=== PATIENT | female | born 1955 | race Hispanic/Latino ===

== ENCOUNTER 2016-09-29 12:13 | Inpatient (IN) | payer MEDICARE, MEDICAID ==
[2016-09-29] MEDS ORDERED: Acetaminophen 160 mg/5 ml UD PO ONE (13:24)
[2016-09-29 13:34] LABS: BASO # 0.1 K/uL (0.0-0.2); BASO % 0.5 % (0.0-2.0); EOS % 0.3 % (0.0-4.0); HEMATOCRIT 34.6 % (34.0-47.0); LYMPH # 2.1 K/uL (1.0-4.3); LYMPH % 12.4 % (20.0-40.0); MEAN CORPUSCULAR HEMOGLOBIN 21.1 pg (27.0-31.0); MONO # 0.9 K/uL (0.0-0.8); MONO % 5.5 % (0.0-10.0); RED CELL DISTRIBUTION WIDTH 17.1 % (11.5-14.5); WHITE BLOOD COUNT 16.8 K/uL (4.8-10.8)
[2016-09-29 13:35] LABS: MEAN CELL VOLUME 68.2 fL (81.0-99.0)
[2016-09-29 13:38] LABS: CHLORIDE 101 mmol/L (98-107)
[2016-09-29] MEDS ORDERED: Acetaminophen 160 mg/5 ml elixir (120 ml) ONE (13:38)
[2016-09-29 13:39] LABS: POTASSIUM 3.6 mmol/L (3.6-5.2); SODIUM 141 mmol/L (132-148)
[2016-09-29 13:41] LABS: ALKALINE PHOSPHATASE 145 U/L (38-126); AST/SGOT 90 U/L (14-36); BILIRUBIN,TOTAL 0.8 mg/dL (0.2-1.3); BLOOD UREA NITROGEN 17 mg/dL (7-17); CARBON DIOXIDE 27 mmol/L (22-30); GFR AFRICAN-AMERICAN > 60; TOTAL PROTEIN 7.4 g/dL (6.3-8.3)
[2016-09-29 13:42] LABS: ALT/SGPT 95 U/L (9-52); CALCIUM 9.4 mg/dl (8.6-10.4); GLUCOSE,RANDOM 146 mg/dL (65-105)
[2016-09-29] MEDS ORDERED: Sodium Chloride 0.9% 1,000 ML IV ONE (13:47)
--- NOTE | 2016-09-29 13:55 | C.PDOC ---
History Of Present Illness 61 yr old female with PMHx of Multiple Sclerosis and is bed bound, brought in by family, presents to the ER with injury to the right hand sustained last weeks during transfer. Family reports an XRay was done at home which shows a fracture and came in today for further evaluation. Family states the patient is on Prednisone for the past 2 days. ROS is limited due to clinical condition. Family denies fever. Time Seen by Provider: 09/29/16 13:05 Chief Complaint (Nursing): Upper Extremity Problem/Injury History Per: Family History/Exam Limitations: clinical condition Onset/Duration Of Symptoms: Days (1 week) Past Medical History Reviewed: Historical Data, Nursing Documentation, Vital Signs Vital Signs: Last Vital Signs Temp 98.2 F 10/01/16 07:35 Pulse 60 10/01/16 07:35 Resp 20 10/01/16 07:35 BP 136/78 10/01/16 07:35 Pulse Ox 96 10/01/16 13:30 - Medical History PMH: Multiple Sclerosis Family History: States: No Known Family Hx - Social History Hx Alcohol Use: No Hx Substance Use: No Review Of Systems Review Of Systems: ROS cannot be obtained secondary to pt's inabilty to answer questions. Constitutional: Negative for: Fever Musculoskeletal: Positive for: Other ((+) Right hand injury ) Physical Exam - Physical Exam Appears: Non-toxic, No Acute Distress Skin: Warm, Dry, No Rash Head: Atraumatic, Normacephalic Oral Mucosa: Moist Chest: Symmetrical, No Tenderness Cardiovascular: Rhythm Regular, No Murmur Respiratory: Normal Breath Sounds, No Rales, No Rhonchi, No Stridor, No Wheezing Gastrointestinal/Abdominal: Normal Exam, Soft, No Tenderness, No Guarding, No Rebound Extremity: Capillary Refill (<2), Other (Right Hand - Dorsam aspect, multiple white plauges 2-3 mm in size all over the hand. Hand is erythematous, swollen and warm to touch especially over the 1st, 2nd and 3rd metacarpals.) Neurological/Psych: Oriented x3, Other (Patient is alert and at baseline according to family. ) ED Course And Treatment - Laboratory Results Result Diagrams: 10/01/16 08:14 10/01/16 08:14 O2 Sat by Pulse Oximetry: 96 (RA ) Pulse Ox Interpretation: Normal - Other Rad X-Ray - Right Hand X-Ray: Viewed By Me, Read By Radiologist Interpretation: PROCEDURE: Right Hand Radiographs. HISTORY: trauma to 2nd finger, swelling and red. COMPARISON: None available. FINDINGS: BONES: Oblique displaced fracture of the distal 2nd metatarsal. The remainder of the visualized osseous structures appear intact. JOINTS: No dislocation. SOFT TISSUES: Soft tissue swelling. No evidence of radiopaque foreign body. OTHER FINDINGS: None. IMPRESSION: Oblique displaced fracture of the distal 2nd metatarsal. Soft tissue swelling. Medical Decision Making Medical Decision Making: PLAN: * X-Ray - Right hand * VBG * CBC * CMp * Urinalysis * Tylenol PO * Rocephin IVPB * Sodium Chloride IV [address] Sal, will admit pt for iv antibiotics for hand cellulitis. Discussed with medical surgical tech working with Dr Fiore. Disposition Discussed With .: Shreyas Shane Doctor Will See Patient In The: Hospital - Disposition Disposition: HOSPITALIZED Disposition Time: 15:28 Condition: STABLE - Clinical Impression Clinical Impression: Cellulitis of right hand, Fracture of metacarpal of right hand, closed - PA / ASTRONOMY INSTRUCTOR / Resident Statement MD/DO has reviewed & agrees with the documentation as recorded. - Scribe Statement The provider has reviewed the documentation as recorded by the Scribe Cortney Dupree All medical record entries made by the Scribe were at my direction and personally dictated by me. I have reviewed the chart and agree that the record accurately reflects my personal performance of the history, physical exam, medical decision making, and the department course for this patient. I have also personally directed, reviewed, and agree with the discharge instructions and disposition. Decision To Admit - Pt Status Changed To: Hospital Disposition Of: Observation - . Bed Request Type: Regular Admitting Physician: Shreyas Shane Patient Diagnosis: Cellulitis of right hand, Fracture of metacarpal of right hand, closed
[2016-09-29 13:56] LABS: VENOUS BLOOD GAS BASE EXCESS 5.1 mmol/L (0.0-2.0); VENOUS BLOOD GAS PCO2 47 mmHg (40-60); VENOUS BLOOD PH 7.42 (7.32-7.43)
[2016-09-29] MEDS ORDERED: cefTRIAXone IV 1 gm in Dextros 50 ML IVPB ONE (13:57)
[2016-09-29] MEDS ORDERED: Sodium Chloride 0.9% 1,000 ML ONE ×2 (13:57→18:02)
[2016-09-29 14:09] LABS: RBC URINE 12 /hpf (0-3); URINE BILIRUBIN 1+ (NEGATIVE); URINE COLOR Amber (YELLOW); URINE GLUCOSE (UA) NORMAL (Normal); URINE KETONE NEGATIVE (NEGATIVE); URINE LEUKOCYTE ESTERASE 2+ Leu/uL (Negative); URINE PROTEIN 3+ mg/dL (NEGATIVE); URINE UROBILINOGEN NORMAL mg/dL (0.2-1.0)
[2016-09-29 14:10] LABS: URINE BLOOD 1+ (NEGATIVE)
--- NOTE | 2016-09-29 15:51 | RAD ---
PROCEDURE: Right Hand Radiographs. HISTORY: trauma to 2nd finger, swelling and red COMPARISON: None available. FINDINGS: BONES: Oblique displaced fracture of the distal 2nd metatarsal. The remainder of the visualized osseous structures appear intact. JOINTS: No dislocation. SOFT TISSUES: Soft tissue swelling. No evidence of radiopaque foreign body. OTHER FINDINGS: None. IMPRESSION: Oblique displaced fracture of the distal 2nd metatarsal. Soft tissue swelling.
--- NOTE | 2016-09-29 15:55 | CP.PCM.HP ---
History of Present Illness - History of Present Illness History of Present Illness: Medicine Note for Dr. Ruffin CC: right hand pain HPI: 61 F with PMHx of MS, Overactive Bladder, and Depression presents to the ED with right hand pain. Patient is nonverbal, history retrieved from sister. Patient has home health aide assist her with her ADLs. During transfer last week , from toilet to wheelchair, the home health aid, grabbed the patient's right hand, grasping firmly the first 2 digits. Afterwards, the patient complained of right hand pain. The family assumed she sprained it and applied ice packs to the hand. They noticed the hand was becoming swollen, erythematous, and started to cause the patient pain. The family has a visiting CONVENTIONAL UNDERWRITER that comes 1-2/ month. The CONVENTIONAL UNDERWRITER ordered a hand xray - which showed fracture to the 2nd digit. Once aware of this, patient was brought to the ED. The patient has hx of overactive bladder , so has a suprapubic indwelling catheter inserted. This is changed out every 2 weeks. She has not been on steroids for several years now. She was given a small dose for the past 3 days by the visiting CONVENTIONAL UNDERWRITER. As per family, no fever or chills where noted. ROS unattainable from patient. PMHx: MS, Overactive Bladder, Depression PSHx: Left hip replacement 20 years ago Meds: As per APR. reviewed and confirmed by patient's medication list All: NKDA SHx: Denied x3 FHx: Unremarkable PMD: Reisner Present on Admission - Present on Admission Any Indicators Present on Admission: No Past Patient History - Past Social History Smoking Status: Former Smoker - NEUROLOGICAL Hx Multiple Sclerosis: Yes - PSYCHIATRIC Hx Substance Use: No - SURGICAL HISTORY Other/Comment: suprapubic catheter Meds Allergies/Adverse Reactions: Allergies Allergy/AdvReac Type Severity Reaction Status Date / Time No Known Allergies Allergy Unverified 09/29/16 12:49 Physical Exam - Constitutional Appears: No Acute Distress - Head Exam Head Exam: NORMAL INSPECTION, NORMOCEPHALIC - Eye Exam Eye Exam: EOMI, Normal appearance, PERRL. absent: Nystagmus, Scleral icterus - ENT Exam ENT Exam: Mucous Membranes Dry - Neck Exam Neck exam: Positive for: Normal Inspection - Respiratory Exam Respiratory Exam: Clear to Auscultation Bilateral, NORMAL BREATHING PATTERN. absent: Decreased Breath Sounds, Wheezes - Cardiovascular Exam Cardiovascular Exam: REGULAR RHYTHM, RRR, +S1, +S2 - GI/Abdominal Exam GI & Abdominal Exam: Normal Bowel Sounds, Soft. absent: Distended, Tenderness Additional comments: suprapubic catheter in place - Extremities Exam Extremities exam: Positive for: normal inspection, pedal pulses present. Negative for: pedal edema, tenderness Additional comments: Right Hand - Dorsam aspect, multiple white plauges 2-3 mm in size all over the hand. Hand is erythematous, swollen and warm to touch especially over the 1st, 2nd and 3rd metacarpals. - Neurological Exam Neurological exam: Alert, Oriented x3 - Psychiatric Exam Psychiatric exam: Normal Affect, Normal Mood - Skin Skin Exam: Dry, Intact, Normal Color, Warm Results - Vital Signs Recent Vital Signs: Last Vital Signs Temp 99.8 F H 09/29/16 12:56 Pulse 105 H 09/29/16 12:56 Resp 26 H 09/29/16 12:56 BP 113/74 09/29/16 12:56 Pulse Ox 96 09/29/16 15:29 - Labs Result Diagrams: 09/29/16 13:28 09/29/16 13:28 Labs: Laboratory Results - last 24 hr 09/29/16 09/29/16 09/29/16 13:28 13:28 13:50 WBC 16.8 H RBC 5.07 Hgb 10.7 L Hct 34.6 MCV 68.2 L MCH 21.1 L MCHC 31.0 L RDW 17.1 H Plt Count 288 MPV 10.0 Neut % (Auto) 81.3 H Lymph % (Auto) 12.4 L [place] % (Auto) 5.5 Eos % (Auto) 0.3 Baso % (Auto) 0.5 Neut # 13.7 H Lymph # 2.1 [place] # 0.9 H Eos # 0.0 Baso # 0.1 Differential Comment pO2 49 VBG pH 7.42 VBG pCO2 47 VBG HCO3 28.6 VBG Total CO2 31.9 H VBG O2 Sat (Calc) 86.5 H VBG Base Excess 5.1 H VBG Potassium 3.9 Glucose 153 H Lactate 1.3 Sodium 141 141.0 Potassium 3.6 Chloride 101 104.0 Carbon Dioxide 27 Anion Gap 16 BUN 17 Creatinine 0.5 L Est GFR ( Amer) > 60 Est GFR (Non-Af Amer) > 60 Random Glucose 146 H Calcium 9.4 Total Bilirubin 0.8 AST 90 H ALT 95 H Alkaline Phosphatase 145 H Total Protein 7.4 Albumin 3.7 Globulin 3.8 Albumin/Globulin Ratio 1.0 Venous Blood Potassium 3.9 Urine Color Urine Clarity Urine pH Ur Specific [place] Urine Protein Urine Glucose (UA) Urine Ketones Urine Blood Urine Nitrate Urine Bilirubin Urine Urobilinogen Ur Leukocyte Esterase Urine RBC (Auto) Amorphous Sediment 09/29/16 13:51 WBC RBC Hgb Hct MCV MCH MCHC RDW Plt Count MPV Neut % (Auto) Lymph % (Auto) [place] % (Auto) Eos % (Auto) Baso % (Auto) Neut # Lymph # [place] # Eos # Baso # Differential Comment pO2 VBG pH VBG pCO2 VBG HCO3 VBG Total CO2 VBG O2 Sat (Calc) VBG Base Excess VBG Potassium Glucose Lactate Sodium Potassium Chloride Carbon Dioxide Anion Gap BUN Creatinine Est GFR ( Amer) Est GFR (Non-Af Amer) Random Glucose Calcium Total Bilirubin AST ALT Alkaline Phosphatase Total Protein Albumin Globulin Albumin/Globulin Ratio Venous Blood Potassium Urine Color Alisson Urine Clarity Turbid Urine pH 8.0 Ur Specific [place] 1.032 H Urine Protein 3+ H Urine Glucose (UA) Normal Urine Ketones Negative Urine Blood 1+ H Urine Nitrate Negative Urine Bilirubin 1+ H Urine Urobilinogen Normal Ur Leukocyte Esterase 2+ H Urine RBC (Auto) 12 H Amorphous Sediment Many H Assessment & Plan - Assessment and Plan (Free Text) Plan: 2nd metacarpal of right hand fracture * Right Hand Xray- oblique displaced fracture of the distal 2nd metatarsal. Soft tissue swelling * Dr. Fiore consulted - help appreciated Right Hand Cellulitis * Started on: Vancomycin 1gram IVP daily * ID Consulted Dr. Wilman Arora - for approval for Teflaro * Motrin PRN, Toradol PRN for pain * F/U procal UTI * UA +3 LE * NS @ 125cc/hr * F/U Urine Culture Transaminitis * AST/ALT: 90/95 * Most likely 2/2 Imuran * Continue to monitor Hx of Multiple Sclerosis * Baclofen 20mg PO TID Hx of Overactive Bladder * Vesicare 5mg PO daily Hx of Neuropathy * Effexor xR 150mg PO daily Prophylactic Measures * GI PPX: Pepcid 20mg PO daily * DVT PPX: SCDs, lovenox 40 SC daily * Regular Diet DW Malika Oconnor DO, PGY-1
[2016-09-29] MEDS ORDERED: Sodium Chloride 0.9% 1,000 ML IV SCH ×2 (16:45→17:04)
--- NOTE | 2016-09-29 17:20 | CP.PCM.CON ---
History of Present Illness - History of Present Illness History of Present Illness: CONSULT NOTE FOR DR. ALARCON 61F presents to Ed with right hand swelling and pain that began on . Patient has a history of MS and has difficulty with talking, so family at bedside explain the course of events. On , while trying to get up from the bathroom with the help of home-maker, patient had a sudden sharp pain in her right hand while it was being pulled by homemaker who was helping her up. Family thought the pain was due to muscle strain in that area so it was not addressed. Gradually through the next following days, patients right hand began to swell and began having erythema. They reached out to primary THEATRICAL SCENIC DESIGNER who ordered an x-ray that showed swelling and fracture. PMH: Multiple sclerosis PSH: hip replacement Social: denies tobacco/alcohol/illicit drugs Allergies: NKDA Past Patient History - Past Social History Smoking Status: Former Smoker - NEUROLOGICAL Hx Multiple Sclerosis: Yes - PSYCHIATRIC Hx Substance Use: No - SURGICAL HISTORY Other/Comment: suprapubic catheter Meds Allergies/Adverse Reactions: Allergies Allergy/AdvReac Type Severity Reaction Status Date / Time No Known Allergies Allergy Unverified 09/29/16 12:49 - Medications Medications: Current Medications Azathioprine (Imuran) 50 mg PO TID [facility] Baclofen (Lioresal) 20 mg PO TID [facility] Enoxaparin Sodium (Lovenox) 40 mg SC DAILY [facility] Famotidine (Pepcid) 20 mg PO DAILY [facility] Home Med (Solifenacin Succinate [Vesicare]) 5 mg PO DAILY [facility] Sodium Chloride (Sodium Chloride 0.9%) 1,000 mls @ 125 mls/hr IV .Q8H [facility] Stop: 09/30/16 00:44 Ketorolac Tromethamine (Toradol) 30 mg IVP Q6 PRN PRN Reason: Pain, moderate (4-7) Morphine Sulfate (Morphine) 1 mg IVP Q4 PRN PRN Reason: Pain, severe (8-10) Ondansetron HCl (Zofran Inj) 4 mg IVP Q6H PRN PRN Reason: Nausea/Vomiting Saccharomyces Boulardii (Florastor) 250 mg PO DAILY [facility] Venlafaxine HCl (Effexor Xr) 150 mg PO DAILY [facility] Physical Exam - Constitutional Appears: No Acute Distress, Chronically Ill (history of MS) - Head Exam Head Exam: ATRAUMATIC - ENT Exam ENT Exam: Mucous Membranes Moist - Respiratory Exam Respiratory Exam: Clear to Auscultation Bilateral, NORMAL BREATHING PATTERN - Cardiovascular Exam Cardiovascular Exam: REGULAR RHYTHM, +S1, +S2 - GI/Abdominal Exam GI & Abdominal Exam: Soft. absent: Distended, Guarding, Rebound, Rigid, Tenderness - Extremities Exam Additional comments: right hand swelling and spasticity, with erythema on dorsal side noted. good capillary refill, palpable radial pulse Right Lower extremity spasticity - Neurological Exam Neurological exam: Alert - Skin Skin Exam: Dry, Intact, Normal Color, Warm Results - Vital Signs Recent Vital Signs: Last Vital Signs Temp 97.5 F L 09/29/16 16:29 Pulse 82 09/29/16 16:29 Resp 18 09/29/16 16:29 BP 121/74 09/29/16 16:29 Pulse Ox 96 09/29/16 16:29 - Labs Result Diagrams: 09/29/16 13:28 09/29/16 13:28 Assessment & Plan - Assessment and Plan (Free Text) Assessment: 61 with right hand pain and swelling 2/2 fracture of right 2nd metacarpal and cellulitis Plan: - NSAIDs/right arm elevation - Splint right hand lightly Discussed with Dr. Macarena Conroy, PGY2
[2016-09-29] MEDS ORDERED: Vancomycin 1 GM 1 GM/250 ML BAG IVPB ONE (18:02)
--- NOTE | 2016-09-29 22:33 | CP.PCM.CON ---
History of Present Illness - History of Present Illness History of Present Illness: INFECTIOUS DISEASE CONSULT; HX OBTAINED FROM CHART. PATIENT UNABLE TO GIVE DETAILS SECONDARY TO HER MS 61F presents to Ed with right hand swelling and pain that began on . Patient has a history of MS and has difficulty with talking, so family at bedside explain the course of events. On , while trying to get up from the bathroom with the help of home-maker, patient had a sudden sharp pain in her right hand while it was being pulled by homemaker who was helping her up. Family thought the pain was due to muscle strain in that area so it was not addressed. Gradually through the next following days, patients right hand began to swell and began having erythema. They reached out to primary BEAUTICIAN APPRENTICE who ordered an x-ray that showed swelling and fracture. PATIENT PRESENTLY SEEN BY HAND SURGEON DR ALARCON AND HAS A SPLINT RIGHT HAND. SHE WAS GIVEN A DOSE OF ROCEPHIN 1 G AND STARTED ON iv VANCOMYCIN 1 G EVERY 24 HOURLY PATIENT WAS NOTED TO HAVE CELLULITIS AND SWELLING OF THE RIGHT HAND WITH LEUKOCYTOSIS OF 16.8. INFECTIOUS DISEASE CONSULTATION REQUESTED FOR FURTHER EVALUATION OF iv ANTIBIOTICS. pATIENT ALSO NOTED TO HAVE ELEVATED TRANSAMINASES WITH ast OF 90, alt OF 95. X-RAY RIGHT HAND SHOWS A OBLIQUE DISPLACED FRACTURE OF DISTAL 2ND METATARSAL WITH SOFT TISSUE SWELLING. ALLERGIES; NKA. PMH: Multiple sclerosis PSH: hip replacement Social: denies tobacco/alcohol/illicit drugs Review of Systems - Review of Systems Systems not reviewed;Unavailable: Other (PATIENT HAS DIFFICULTY TALKING SECONDARY TO HER MS.) Past Patient History - Past Social History Smoking Status: Former Smoker - NEUROLOGICAL Hx Multiple Sclerosis: Yes - PSYCHIATRIC Hx Substance Use: No - SURGICAL HISTORY Other/Comment: suprapubic catheter Meds Allergies/Adverse Reactions: Allergies Allergy/AdvReac Type Severity Reaction Status Date / Time No Known Allergies Allergy Unverified 09/29/16 12:49 - Medications Medications: Current Medications Baclofen (Lioresal) 20 mg PO TID [facility] Last Admin: 09/29/16 19:35 Dose: 20 mg Enoxaparin Sodium (Lovenox) 40 mg SC DAILY [facility] Famotidine (Pepcid) 20 mg PO DAILY [facility] Sodium Chloride (Sodium Chloride 0.9%) 1,000 mls @ 125 mls/hr IV .Q8H [facility] Stop: 09/30/16 00:44 Vancomycin HCl 1 gm/ Sodium (Chloride) 250 mls @ 166.7 mls/hr IVPB Q24H [facility] Last Admin: 09/29/16 18:11 Dose: 166.7 mls/hr Ibuprofen (Motrin Tab) 600 mg PO TID PRN PRN Reason: Pain, Mild (1-3) Ketorolac Tromethamine (Toradol) 30 mg IVP Q6 [facility] Ondansetron HCl (Zofran Inj) 4 mg IVP Q6H PRN PRN Reason: Nausea/Vomiting Saccharomyces Boulardii (Florastor) 250 mg PO DAILY [facility] Tolterodine Tartrate (Detrol La) 2 mg PO DAILY [facility] Venlafaxine HCl (Effexor Xr) 150 mg PO DAILY [facility] Physical Exam - Constitutional Appears: No Acute Distress - Head Exam Head Exam: NORMAL INSPECTION - Eye Exam Eye Exam: EOMI, PERRL - ENT Exam ENT Exam: Normal Oropharynx - Neck Exam Neck exam: Positive for: Normal Inspection - Respiratory Exam Respiratory Exam: Clear to Auscultation Bilateral - Cardiovascular Exam Cardiovascular Exam: REGULAR RHYTHM, +S1, +S2 - GI/Abdominal Exam GI & Abdominal Exam: Normal Bowel Sounds, Soft. absent: Organomegaly - Extremities Exam Extremities exam: Positive for: pedal pulses present. Negative for: calf tenderness, pedal edema - Expanded Upper Extremities Exam Right Vascular exam: absent: vascular compromise (RIGHT HAND SOFT TISSUE SWELLING WITH TENDERNESS PALPATION DISTAL SECOND METATARSAL. pATIENT WITH A SPLINT PRESENTLY.) - Neurological Exam Neurological exam: Alert - Psychiatric Exam Psychiatric exam: Flat Affect - Skin Skin Exam: Normal Color, Warm Results - Vital Signs Recent Vital Signs: Last Vital Signs Temp 97.4 F L 09/29/16 21:30 Pulse 92 H 09/29/16 19:50 Resp 20 09/29/16 19:50 BP 119/77 09/29/16 19:50 Pulse Ox 96 09/29/16 19:50 - Labs Result Diagrams: 09/30/16 07:05 09/30/16 07:05 Labs: Laboratory Results - last 24 hr 09/29/16 17:24 Procalcitonin 0.13 L Assessment & Plan (1) Cellulitis of right hand Assessment and Plan: DC IV VANCOMYCIN. START IV ANCEF 1 G EVERY 8 HOURLY 09/29/16 PER RECOMMENDATIONS AND SURGERY PATIENT FOR OT /AND SPECIAL SPLINT. fOLLOW-UP CBC WITH DIFFERENTIAL IN A.M. ESR,CRP IN AM. f/u cultures to adjust abx. Status: Acute (2) Fracture of metacarpal of right hand, closed Status: Acute
[2016-09-30] MEDS: ceFAZolin IV 1 gm in Dextrose 1 GM/50 ML BAG IVPB SCH ×2 (04:35→11:49)
[2016-09-30 07:18] LABS: CHLORIDE 106 mmol/L (98-107)
[2016-09-30 07:19] LABS: POTASSIUM 3.7 mmol/L (3.6-5.2); SODIUM 141 mmol/L (132-148)
[2016-09-30 07:21] LABS: AST/SGOT 62 U/L (14-36); BILIRUBIN,DIRECT 0.4 mg/dL (0.0-0.4); BILIRUBIN,TOTAL 0.5 mg/dL (0.2-1.3); BLOOD UREA NITROGEN 16 mg/dL (7-17); CARBON DIOXIDE 27 mmol/L (22-30); GFR AFRICAN-AMERICAN > 60; TOTAL PROTEIN 6.3 g/dL (6.3-8.3)
[2016-09-30 07:22] LABS: ALKALINE PHOSPHATASE 115 U/L (38-126); ALT/SGPT 82 U/L (9-52); CALCIUM 8.5 mg/dl (8.6-10.4); GLUCOSE,RANDOM 88 mg/dL (65-105)
[2016-09-30 07:24] LABS: BASO % 0.2 % (0.0-2.0); EOS # 0.1 K/uL (0.0-0.7); EOS % 0.5 % (0.0-4.0); HEMATOCRIT 30.1 % (34.0-47.0); LYMPH # 3.2 K/uL (1.0-4.3); LYMPH % 29.9 % (20.0-40.0); MEAN CELL VOLUME 67.8 fL (81.0-99.0); MEAN CORPUSCULAR HEMOGLOBIN 21.5 pg (27.0-31.0); MEAN CORPUSCULAR HGB CONC 31.8 g/dL (33.0-37.0); MEAN PLATELET VOLUME 9.8 fL (7.2-11.7); MONO # 0.7 K/uL (0.0-0.8); MONO % 6.8 % (0.0-10.0); RED CELL DISTRIBUTION WIDTH 17.2 % (11.5-14.5); WHITE BLOOD COUNT 10.7 K/uL (4.8-10.8)
[2016-09-30 07:31] LABS: CHLORIDE 106 mmol/L (98-107); POTASSIUM 3.7 mmol/L (3.6-5.2)
[2016-09-30 07:33] LABS: BILIRUBIN,TOTAL 0.5 mg/dL (0.2-1.3); GFR AFRICAN-AMERICAN > 60
[2016-09-30 07:34] LABS: ALB/GLOB RATIO 0.9 (1.0-2.1); ALKALINE PHOSPHATASE 119 U/L (38-126); ALT/SGPT 82 U/L (9-52); AST/SGOT 66 U/L (14-36); BLOOD UREA NITROGEN 18 mg/dL (7-17); CALCIUM 8.8 mg/dl (8.6-10.4); CARBON DIOXIDE 26 mmol/L (22-30); GLUCOSE,RANDOM 92 mg/dL (65-105); PHOSPHOROUS 3.4 mg/dL (2.5-4.5); TOTAL PROTEIN 6.4 g/dL (6.3-8.3)
[2016-09-30 07:35] LABS: MAGNESIUM 2.1 mg/dL (1.6-2.3)
[2016-09-30 07:36] LABS: SODIUM 141 mmol/L (132-148)
[2016-09-30] MEDS: Enoxaparin 40 mg Syringe SC SCH ×2 (09:32→09:44)
[2016-09-30] MEDS: Venlafaxine 150 mg ER Cap PO SCH (09:33)
[2016-09-30] MEDS: Saccharomyces Boulardi 250 mg Cap PO SCH (09:34)
[2016-09-30] MEDS: Tolterodine 2 mg ER Cap PO SCH (09:34)
[2016-09-30] MEDS ORDERED: Pantoprazole 40 mg EC Tab PO SCH (10:00)
[2016-09-30] MEDS ORDERED: Home Med 1 UNIT (Solifenacin Succinate [Vesicare] 5 MG) PO SCH (10:00)
--- NOTE | 2016-09-30 11:00 | CP.PCM.PN ---
Subjective - Date & Time of Evaluation Date of Evaluation: 09/30/16 Time of Evaluation: 07:00 - Subjective Subjective: HAND SURGERY PROGRESS NOTE FOR DR. ALARCON Patient seen and examined at bedside. She denies pain, numbness, or tingling in the right hand. She is tolerating her diet. Spoke with OT therapist who evaluated patient today for new splint. Objective - Vital Signs/Intake and Output Vital Signs (last 24 hours): Temp Pulse Resp BP Pulse Ox 98.4 F 74 20 115/74 96 09/30/16 08:18 09/30/16 08:18 09/30/16 08:18 09/30/16 08:18 09/30/16 08:18 Intake and Output: 09/30/16 09/30/16 06:59 18:59 Intake Total 580 Output Total 800 Balance -220 - Medications Medications: Current Medications Baclofen (Lioresal) 20 mg PO TID [facility] Last Admin: 09/30/16 09:33 Dose: 20 mg Enoxaparin Sodium (Lovenox) 40 mg SC DAILY [facility] Last Admin: 09/30/16 09:44 Dose: Not Given Famotidine (Pepcid) 20 mg PO DAILY [facility] Last Admin: 09/30/16 09:32 Dose: 20 mg Cefazolin Sodium/Dextrose (Ancef Iv 1 Gm Duplex) 1 gm in 50 mls @ 100 mls/hr IVPB Q8H [facility] Last Admin: 09/30/16 04:35 Dose: 100 mls/hr Ibuprofen (Motrin Tab) 600 mg PO TID PRN PRN Reason: Pain, Mild (1-3) Ketorolac Tromethamine (Toradol) 30 mg IVP Q6 [facility] Last Admin: 09/30/16 05:28 Dose: 30 mg Ondansetron HCl (Zofran Inj) 4 mg IVP Q6H PRN PRN Reason: Nausea/Vomiting Saccharomyces Boulardii (Florastor) 250 mg PO DAILY [facility] Last Admin: 09/30/16 09:34 Dose: 250 mg Tolterodine Tartrate (Detrol La) 2 mg PO DAILY [facility] Last Admin: 09/30/16 09:34 Dose: 2 mg Venlafaxine HCl (Effexor Xr) 150 mg PO DAILY [facility] Last Admin: 09/30/16 09:33 Dose: 150 mg - Labs Labs: 09/30/16 07:05 09/30/16 07:05 - Constitutional Appears: Non-toxic, No Acute Distress - Respiratory Exam Respiratory Exam: NORMAL BREATHING PATTERN. absent: Respiratory Distress - Cardiovascular Exam Cardiovascular Exam: +S1, +S2 - Extremities Exam Extremities Exam: Normal Capillary Refill Additional comments: Right hand and wrist in splint. Dressing clean/dry/intact. Cap refill <2secs. Non tender - Neurological Exam Neurological Exam: Alert, Awake Assessment and Plan - Assessment and Plan (Free Text) Assessment: 61yo F with right hand pain and swelling secondary to minimally displaced fracture of right 2nd metacarpal - No surgery needed due to minimal displacement. - OT evaluated patient and placed new splint but patient will need to go to outpatient OT facility for fully custom made removable splint - Will need referral for custom splint made as an outpatient ([facility]). - She should have custom radial gutter splint that supports the index finger MCP joint and leaves the DIP and PIP joints free. It can include the long finger but leave the ring and small finger free if possible. - Elevate hand on 2 pillows above the level of the heart - NSAIDs to decrease inflammation - Discussed plan with Dr. Macarena Varghese PGY-3
[2016-09-30] MEDS: Ceftaroline 600 MG in Sodium Chloride 0.9% 100 ML IVPB SCH (14:28)
--- NOTE | 2016-09-30 17:08 | CP.PCM.PN ---
Subjective - Date & Time of Evaluation Date of Evaluation: 09/30/16 Time of Evaluation: 17:08 - Subjective Subjective: PGY1 Note for Dr. Ruffin HPI: Patient seen and examined at bedside. Doing well with no complaints at this time. Able to communicate but sister is present to assist. Denies pain. Sister wants dressing changed on Suprapubic cath every day. Surgery is seeing patient for care of the splint. ID is taking care of the cellulitis. Objective - Vital Signs/Intake and Output Vital Signs (last 24 hours): Temp Pulse Resp BP Pulse Ox 98.4 F 74 20 115/74 96 09/30/16 08:18 09/30/16 08:18 09/30/16 08:18 09/30/16 08:18 09/30/16 08:18 Intake and Output: 09/30/16 09/30/16 06:59 18:59 Intake Total 580 400 Output Total 800 300 Balance -220 100 - Medications Medications: Current Medications Baclofen (Lioresal) 20 mg PO TID [facility] Last Admin: 09/30/16 14:29 Dose: 20 mg Enoxaparin Sodium (Lovenox) 40 mg SC DAILY [facility] Last Admin: 09/30/16 09:44 Dose: Not Given Famotidine (Pepcid) 20 mg PO DAILY [facility] Last Admin: 09/30/16 09:32 Dose: 20 mg Ceftaroline Fosamil 600 mg/ (Sodium Chloride) 100 mls @ 100 mls/hr IVPB Q12H [facility] Last Admin: 09/30/16 14:28 Dose: 100 mls/hr Ibuprofen (Motrin Tab) 600 mg PO TID PRN PRN Reason: Pain, Mild (1-3) Ketorolac Tromethamine (Toradol) 30 mg IVP Q6 [facility] Last Admin: 09/30/16 11:49 Dose: 30 mg Neomycin/Polymyxin/Bacitracin (Neosporin Triple Antibiotic Oint) 0 gm TOP DAILY [facility] Stop: 10/03/16 13:45 Ondansetron HCl (Zofran Inj) 4 mg IVP Q6H PRN PRN Reason: Nausea/Vomiting Pneumococcal Polyvalent Vaccine (Pneumovax 23 Vaccine) 0.5 ml IM .ONCE ONE Stop: 10/03/16 10:01 Saccharomyces Boulardii (Florastor) 250 mg PO DAILY [facility] Last Admin: 09/30/16 09:34 Dose: 250 mg Tolterodine Tartrate (Detrol La) 2 mg PO DAILY [facility] Last Admin: 09/30/16 09:34 Dose: 2 mg Venlafaxine HCl (Effexor Xr) 150 mg PO DAILY [facility] Last Admin: 09/30/16 09:33 Dose: 150 mg - Labs Labs: 09/30/16 07:05 09/30/16 07:05 - Constitutional Appears: Well, Non-toxic, No Acute Distress - Head Exam Head Exam: ATRAUMATIC, NORMAL INSPECTION, NORMOCEPHALIC - Eye Exam Eye Exam: EOMI - ENT Exam ENT Exam: Mucous Membranes Moist - Respiratory Exam Respiratory Exam: Clear to Ausculation Bilateral, NORMAL BREATHING PATTERN - Cardiovascular Exam Cardiovascular Exam: REGULAR RHYTHM. absent: RRR - GI/Abdominal Exam GI & Abdominal Exam: Soft, Normal Bowel Sounds. absent: Distended, Tenderness - Extremities Exam Additional comments: Warm R. arm with temporary splint in place. Arm elevated on 2 pillows - Neurological Exam Neurological Exam: Alert, Awake - Psychiatric Exam Psychiatric exam: Normal Affect, Normal Mood - Skin Skin Exam: Dry, Intact, Normal Color, Warm Assessment and Plan - Assessment and Plan (Free Text) Assessment: 2nd metacarpal of right hand fracture * Right Hand Xray- oblique displaced fracture of the distal 2nd metacarpal. Soft tissue swelling * Dr. Fiore consulted - temporary splint in place. F/U outpatient OT for custom splint * NSAIDs for pain Right Hand Cellulitis * ID Consulted Dr. Wilman Arora - for approval for Teflaro * Ancef 1g Q8 * Motrin PRN, Toradol PRN for pain * Procal = 0.13 UTI * UA +3 LE * NS @ 125cc/hr * F/U Urine Culture Transaminitis * AST/ALT: 62/82 * Most likely 2/2 Imuran * Continue to monitor Hx of Multiple Sclerosis * Baclofen 20mg PO TID Hx of Overactive Bladder * Vesicare 5mg PO daily Hx of Neuropathy * Effexor xR 150mg PO daily Prophylactic Measures * GI PPX: Pepcid 20mg PO daily * DVT PPX: SCDs, lovenox 40 SC daily * Regular Diet
--- NOTE | 2016-09-30 19:31 | CP.PCM.PN ---
Subjective - Date & Time of Evaluation Date of Evaluation: 09/30/16 Time of Evaluation: 19:31 - Subjective Subjective: CHIEF COMPLAINTS TODAY : afebrile c/o pain rt hand rt hand swollen and cellulitic ROS HEENT : N. Resp : No SOB wheezing, cough Cardio : No CP, PND orthopnea GI : No abd. 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 Musculoskel : N Ext. : Pedal pulses intact, no edema or calf pain.right hand swollen and cellulitic on the dorsum. Painful on movement. Derm : N Psych : N. PE. Pt. is alert awake in no distress./DYSARTHRIC SPEECH. V.S As noted in the chart Head ,ear nose,throat and eyes : Normal. Neck : Supple with normal carotids. Lungs: Clear air entry. Heart : S1 & S2 normal . . No murmur. S4 + Abd : Soft non tender with normal bowel sounds. +VE SUPRAPUBIC CATHETER IN PLACE. Neuro : Moves all ext. with no localized deficit.RIGHT HAND SWOLLEN AND CELLULITIC./PULSES INTACT. Ext : No edema with intact pulses. Neg. calf tenderness Derm : No rashes or decubitus ulcer. Radiology/Labs . urine culture +ve gram negative rods/gram-positive cocci. BLOOD CULTURE 1:2 SETS +VE STAPH AUREUS BY pna FISH. Asssessment : STAPH AUREUS BACTEREMIA.-SOURCE CA VS SUPRAPUBIC EXIT SITE INFECTION. RIGHT HAND CELLULITIS FRACTURE PHALANX SECOND METATARSAL RIGHT HAND UTI/SUPRAPUBIC CATHETER HISTORY OF MULTIPLE SCLEROSIS/AND INCREASED SPASTICITY. Plan : dc iv aNCEF cONTINUE iv VANCOMYCIN 1 G ONCE A DAY DAILY.09/28 sTART iv tEFLARO 600 MG EVERY 12 HOURLY FOR GRAM-NEGATIVE AND GRAM-POSITIVE COVERAGE.09/29 wOUND CULTURES SUPRAPUBIC CATHETER EXIT SITE. fOLLOW-UP CULTURES TO ADJUST ANTIBIOTICS. LWC PER HAND SURGEON dR. ALARCON. cASE DISCUSSED WITH THE SISTER JUAN C Vidal. Objective - Vital Signs/Intake and Output Vital Signs (last 24 hours): Temp Pulse Resp BP Pulse Ox 98.1 F 68 20 128/66 95 09/30/16 16:00 09/30/16 16:00 09/30/16 16:00 09/30/16 16:00 09/30/16 16:00 Intake and Output: 09/30/16 10/01/16 18:59 06:59 Intake Total 400 Output Total 300 Balance 100 - Medications Medications: Current Medications Baclofen (Lioresal) 20 mg PO TID [facility] Last Admin: 09/30/16 17:40 Dose: 20 mg Enoxaparin Sodium (Lovenox) 40 mg SC DAILY [facility] Last Admin: 09/30/16 09:44 Dose: Not Given Famotidine (Pepcid) 20 mg PO DAILY [facility] Last Admin: 09/30/16 09:32 Dose: 20 mg Ceftaroline Fosamil 600 mg/ (Sodium Chloride) 100 mls @ 100 mls/hr IVPB Q12H [facility] Last Admin: 09/30/16 14:28 Dose: 100 mls/hr Ibuprofen (Motrin Tab) 600 mg PO TID PRN PRN Reason: Pain, Mild (1-3) Ketorolac Tromethamine (Toradol) 30 mg IVP Q6 [facility] Last Admin: 09/30/16 11:49 Dose: 30 mg Neomycin/Polymyxin/Bacitracin (Neosporin Triple Antibiotic Oint) 0 gm TOP DAILY [facility] Stop: 10/03/16 13:45 Ondansetron HCl (Zofran Inj) 4 mg IVP Q6H PRN PRN Reason: Nausea/Vomiting Pneumococcal Polyvalent Vaccine (Pneumovax 23 Vaccine) 0.5 ml IM .ONCE ONE Stop: 10/03/16 10:01 Saccharomyces Boulardii (Florastor) 250 mg PO DAILY [facility] Last Admin: 09/30/16 09:34 Dose: 250 mg Tolterodine Tartrate (Detrol La) 2 mg PO DAILY [facility] Last Admin: 09/30/16 09:34 Dose: 2 mg Venlafaxine HCl (Effexor Xr) 150 mg PO DAILY [facility] Last Admin: 09/30/16 09:33 Dose: 150 mg - Labs Labs: 09/30/16 07:05 09/30/16 07:05 Assessment and Plan (1) Cellulitis of right hand Status: Acute (2) Fracture of metacarpal of right hand, closed Status: Acute
[2016-10-01] MEDS: Ceftaroline 600 MG in Sodium Chloride 0.9% 100 ML IVPB SCH ×2 (02:45→14:59)
[2016-10-01 08:30] LABS: BASO # 0.1 K/uL (0.0-0.2); BASO % 0.6 % (0.0-2.0); EOS # 0.1 K/uL (0.0-0.7); EOS % 1.2 % (0.0-4.0); HEMATOCRIT 30.7 % (34.0-47.0); LYMPH # 2.4 K/uL (1.0-4.3); MEAN CORPUSCULAR HEMOGLOBIN 21.5 pg (27.0-31.0); MEAN CORPUSCULAR HGB CONC 31.6 g/dL (33.0-37.0); MEAN PLATELET VOLUME 9.7 fL (7.2-11.7); MONO # 0.6 K/uL (0.0-0.8); MONO % 6.7 % (0.0-10.0); RED CELL DISTRIBUTION WIDTH 17.1 % (11.5-14.5); WHITE BLOOD COUNT 9.3 K/uL (4.8-10.8)
[2016-10-01 08:36] LABS: CHLORIDE 104 mmol/L (98-107)
[2016-10-01 08:37] LABS: POTASSIUM 3.9 mmol/L (3.6-5.2); SODIUM 142 mmol/L (132-148)
[2016-10-01 08:39] LABS: ALB/GLOB RATIO 0.9 (1.0-2.1); ALKALINE PHOSPHATASE 119 U/L (38-126); ALT/SGPT 76 U/L (9-52); AST/SGOT 43 U/L (14-36); BILIRUBIN,TOTAL 0.5 mg/dL (0.2-1.3); BLOOD UREA NITROGEN 22 mg/dL (7-17); CARBON DIOXIDE 28 mmol/L (22-30); GFR AFRICAN-AMERICAN > 60; TOTAL PROTEIN 6.3 g/dL (6.3-8.3)
[2016-10-01 08:40] LABS: CALCIUM 8.6 mg/dl (8.6-10.4); GLUCOSE,RANDOM 95 mg/dL (65-105); PHOSPHOROUS 3.9 mg/dL (2.5-4.5)
[2016-10-01] MEDS: Venlafaxine 150 mg ER Cap PO SCH (09:46)
[2016-10-01] MEDS: Tolterodine 2 mg ER Cap PO SCH (09:47)
[2016-10-01] MEDS: Enoxaparin 40 mg Syringe SC SCH (09:47)
[2016-10-01] MEDS: Saccharomyces Boulardi 250 mg Cap PO SCH (09:47)
[2016-10-01] MEDS: Bacitracin/Neomycin/Polymyxin Oint(30GM) TOP SCH (09:48)
--- NOTE | 2016-10-01 15:50 | CP.PCM.PN ---
Subjective - Date & Time of Evaluation Date of Evaluation: 10/01/16 Time of Evaluation: 10:00 - Subjective Subjective: HAND SURGERY PROGRESS NOTE FOR DR. ALARCON Patient seen and examined at bedside. She denies pain, numbness, or tingling in the right hand. She is tolerating her diet. OT placed resting hand splint yesterday. Overnight, the patient's hand slid down in the splint and she had increased swelling in the hand so the splint was removed. The swelling then decreased some to the same amount that she had upon admission. Currently her hand is resting on 2 pillows with ice. Patient also is being followed by ID for staph aureus bacteremia and UTI. Objective - Vital Signs/Intake and Output Vital Signs (last 24 hours): Temp Pulse Resp BP Pulse Ox 98.2 F 60 20 136/78 96 10/01/16 07:35 10/01/16 07:35 10/01/16 07:35 10/01/16 07:35 10/01/16 13:30 - Medications Medications: Current Medications Baclofen (Lioresal) 20 mg PO TID [facility] Last Admin: 10/01/16 13:53 Dose: 20 mg Enoxaparin Sodium (Lovenox) 40 mg SC DAILY [facility] Last Admin: 10/01/16 09:47 Dose: 40 mg Famotidine (Pepcid) 20 mg PO DAILY [facility] Last Admin: 10/01/16 09:47 Dose: 20 mg Ceftaroline Fosamil 600 mg/ (Sodium Chloride) 100 mls @ 100 mls/hr IVPB Q12H [facility] Last Admin: 10/01/16 14:59 Dose: 100 mls/hr Vancomycin HCl 1 gm/ Sodium (Chloride) 250 mls @ 166.7 mls/hr IVPB Q24H [facility] Last Admin: 09/30/16 22:32 Dose: 166.7 mls/hr Ibuprofen (Motrin Tab) 600 mg PO TID PRN PRN Reason: Pain, Mild (1-3) Ketorolac Tromethamine (Toradol) 30 mg IVP Q6 [facility] Last Admin: 10/01/16 12:31 Dose: Not Given Neomycin/Polymyxin/Bacitracin (Neosporin Triple Antibiotic Oint) 0 gm TOP DAILY [facility] Stop: 10/03/16 13:45 Last Admin: 10/01/16 09:48 Dose: 1 applic Ondansetron HCl (Zofran Inj) 4 mg IVP Q6H PRN PRN Reason: Nausea/Vomiting Pneumococcal Polyvalent Vaccine (Pneumovax 23 Vaccine) 0.5 ml IM .ONCE ONE Stop: 10/03/16 10:01 Saccharomyces Boulardii (Florastor) 250 mg PO DAILY [facility] Last Admin: 10/01/16 09:47 Dose: 250 mg Tolterodine Tartrate (Detrol La) 2 mg PO DAILY [facility] Last Admin: 10/01/16 09:47 Dose: 2 mg Venlafaxine HCl (Effexor Xr) 150 mg PO DAILY [facility] Last Admin: 10/01/16 09:46 Dose: 150 mg - Constitutional Appears: Non-toxic, No Acute Distress - Respiratory Exam Respiratory Exam: NORMAL BREATHING PATTERN. absent: Respiratory Distress - Cardiovascular Exam Cardiovascular Exam: +S1, +S2 - Extremities Exam Additional comments: Right hand with dorsal swelling and erythema. No tenderness. Cap refill <2 secs No pain with flexion/extension of fingers - Neurological Exam Neurological Exam: Alert, Awake Assessment and Plan - Assessment and Plan (Free Text) Assessment: 61yo F with right hand pain and swelling secondary to minimally displaced fracture of right 2nd metacarpal - No surgery needed due to minimal displacement. - OT resting hand splint was removed due to pt's hand slipping down and increased swelling - New orthoglass volar splint placed at bedside today - Upon discharge, needs referral for custom splint made as an outpatient ( Camelia or santiago and danae therapy). - She should have custom radial gutter splint that supports the index finger MCP joint and leaves the DIP and PIP joints free. It can include the long finger but leave the ring and small finger free if possible. - Elevate hand on 2 pillows above the level of the heart - Ice and NSAIDs to decrease inflammation - Discussed plan with Dr. Macarena Varghese PGY-3
--- NOTE | 2016-10-01 20:19 | CP.PCM.PN ---
Subjective - Date & Time of Evaluation Date of Evaluation: 10/01/16 Time of Evaluation: 20:15 - Subjective Subjective: PGY1 Note for Dr. Ruffin HPI: Patient seen and examined at bedside. Doing well. Able to communicate but slow to respond given her MS. Not complaining of any pain. Looks comfortable in bed. Denies N/V/CP/SOB/F Objective - Vital Signs/Intake and Output Vital Signs (last 24 hours): Temp Pulse Resp BP Pulse Ox 99.0 F 86 20 125/84 95 10/01/16 15:00 10/01/16 15:00 10/01/16 15:00 10/01/16 15:00 10/01/16 15:00 Intake and Output: 10/01/16 10/02/16 18:59 06:59 Intake Total 600 Output Total 800 Balance -200 - Medications Medications: Current Medications Baclofen (Lioresal) 20 mg PO TID [facility] Last Admin: 10/01/16 17:57 Dose: 20 mg Enoxaparin Sodium (Lovenox) 40 mg SC DAILY [facility] Last Admin: 10/01/16 09:47 Dose: 40 mg Famotidine (Pepcid) 20 mg PO DAILY [facility] Last Admin: 10/01/16 09:47 Dose: 20 mg Ceftaroline Fosamil 600 mg/ (Sodium Chloride) 100 mls @ 100 mls/hr IVPB Q12H [facility] Last Admin: 10/01/16 14:59 Dose: 100 mls/hr Vancomycin HCl 1 gm/ Sodium (Chloride) 250 mls @ 166.7 mls/hr IVPB Q24H [facility] Last Admin: 09/30/16 22:32 Dose: 166.7 mls/hr Ibuprofen (Motrin Tab) 600 mg PO TID PRN PRN Reason: Pain, Mild (1-3) Ketorolac Tromethamine (Toradol) 30 mg IVP Q6 [facility] Last Admin: 10/01/16 18:29 Dose: 30 mg Neomycin/Polymyxin/Bacitracin (Neosporin Triple Antibiotic Oint) 0 gm TOP DAILY [facility] Stop: 10/03/16 13:45 Last Admin: 10/01/16 09:48 Dose: 1 applic Ondansetron HCl (Zofran Inj) 4 mg IVP Q6H PRN PRN Reason: Nausea/Vomiting Pneumococcal Polyvalent Vaccine (Pneumovax 23 Vaccine) 0.5 ml IM .ONCE ONE Stop: 10/03/16 10:01 Saccharomyces Boulardii (Florastor) 250 mg PO DAILY [facility] Last Admin: 10/01/16 09:47 Dose: 250 mg Tolterodine Tartrate (Detrol La) 2 mg PO DAILY [facility] Last Admin: 10/01/16 09:47 Dose: 2 mg Venlafaxine HCl (Effexor Xr) 150 mg PO DAILY [facility] Last Admin: 10/01/16 09:46 Dose: 150 mg - Constitutional Appears: Well, Non-toxic - Head Exam Head Exam: ATRAUMATIC, NORMAL INSPECTION, NORMOCEPHALIC - Eye Exam Pupil Exam: Mydriatic - ENT Exam ENT Exam: Mucous Membranes Moist - Respiratory Exam Respiratory Exam: Clear to Ausculation Bilateral - Cardiovascular Exam Cardiovascular Exam: REGULAR RHYTHM - GI/Abdominal Exam GI & Abdominal Exam: Soft, Normal Bowel Sounds. absent: Distended, Tenderness - Exam Additional comments: Suprapubic catheter - Neurological Exam Neurological Exam: Alert, Awake - Skin Skin Exam: Dry, Intact, Normal Color, Warm Assessment and Plan - Assessment and Plan (Free Text) Assessment: 2nd metacarpal of right hand fracture * Right Hand Xray- oblique displaced fracture of the distal 2nd metacarpal. Soft tissue swelling * Dr. Fiore consulted - temporary splint in place. F/U outpatient OT for custom splint * NSAIDs for pain Right Hand Cellulitis * ID Consulted Dr. Wilman Arora * Teflaro 600mg Q12 * Vanc 1g Q12 * Motrin PRN, Toradol PRN for pain * Procal = 0.13 * Blood culture = S. aureus UTI * UA +3 LE * NS @ 125cc/hr * Urine Culture = S. aureus/Proteus Transaminitis * AST/ALT: 62/82 * Most likely 2/2 Imuran * Continue to monitor Hx of Multiple Sclerosis * Baclofen 20mg PO TID Hx of Overactive Bladder * Vesicare 5mg PO daily Hx of Neuropathy * Effexor xR 150mg PO daily Prophylactic Measures * GI PPX: Pepcid 20mg PO daily * DVT PPX: SCDs, lovenox 40 SC daily * Regular Diet
--- NOTE | 2016-10-01 22:24 | CP.PCM.PN ---
Subjective - Date & Time of Evaluation Date of Evaluation: 10/01/16 Time of Evaluation: 22:23 - Subjective Subjective: CHIEF COMPLAINTS TODAY : afebrile c/o pain rt hand rt hand swollen and cellulitic ROS HEENT : N. Resp : No SOB wheezing, cough Cardio : No CP, PND orthopnea GI : No abd. 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 Musculoskel : N Ext. : Pedal pulses intact, no edema or calf pain.right hand swollen and cellulitic on the dorsum. Painful on movement. Derm : N Psych : N. PE. Pt. is alert awake in no distress./DYSARTHRIC SPEECH. V.S As noted in the chart Head ,ear nose,throat and eyes : Normal. Neck : Supple with normal carotids. Lungs: Clear air entry. Heart : S1 & S2 normal . . No murmur. S4 + Abd : Soft non tender with normal bowel sounds. +VE SUPRAPUBIC CATHETER IN PLACE. Neuro : Moves all ext. with no localized deficit.RIGHT HAND SWOLLEN AND CELLULITIC./PULSES INTACT. Ext : No edema with intact pulses. Neg. calf tenderness Derm : No rashes or decubitus ulcer. Radiology/Labs . urine culture +ve MSSA/ PROTEUS MIRABILIS BLOOD CULTURE 1:2 SETS +VE STAPH AUREUS BY pna FISH. Asssessment : STAPH AUREUS BACTEREMIA.-SOURCE CA VS SUPRAPUBIC EXIT SITE INFECTION. RIGHT HAND CELLULITIS FRACTURE PHALANX SECOND METATARSAL RIGHT HAND UTI/SUPRAPUBIC CATHETER HISTORY OF MULTIPLE SCLEROSIS/AND INCREASED SPASTICITY. Plan : cONTINUE iv VANCOMYCIN 1 G ONCE A DAY DAILY.09/28 ON iv TEFLARO 600 MG EVERY 12 HOURLY FOR GRAM-NEGATIVE AND GRAM-POSITIVE COVERAGE.09/29 WOUND CULTURES SUPRAPUBIC CATHETER EXIT SITE. fOLLOW-UP CULTURES TO ADJUST ANTIBIOTICS. LWC PER HAND SURGEON dR. ALARCON. cASE DISCUSSED WITH THE NEPHEW. Objective - Vital Signs/Intake and Output Vital Signs (last 24 hours): Temp Pulse Resp BP Pulse Ox 99.0 F 86 20 125/84 95 10/01/16 15:00 10/01/16 15:00 10/01/16 15:00 10/01/16 15:00 10/01/16 15:00 Intake and Output: 10/01/16 10/02/16 18:59 06:59 Intake Total 600 Output Total 800 Balance -200 - Medications Medications: Current Medications Baclofen (Lioresal) 20 mg PO TID [facility] Last Admin: 10/01/16 17:57 Dose: 20 mg Enoxaparin Sodium (Lovenox) 40 mg SC DAILY [facility] Last Admin: 10/01/16 09:47 Dose: 40 mg Famotidine (Pepcid) 20 mg PO DAILY [facility] Last Admin: 10/01/16 09:47 Dose: 20 mg Ceftaroline Fosamil 600 mg/ (Sodium Chloride) 100 mls @ 100 mls/hr IVPB Q12H [facility] Last Admin: 10/01/16 14:59 Dose: 100 mls/hr Vancomycin HCl 1 gm/ Sodium (Chloride) 250 mls @ 166.7 mls/hr IVPB Q24H [facility] Last Admin: 10/01/16 21:54 Dose: 166.7 mls/hr Ibuprofen (Motrin Tab) 600 mg PO TID PRN PRN Reason: Pain, Mild (1-3) Ketorolac Tromethamine (Toradol) 30 mg IVP Q6 [facility] Last Admin: 10/01/16 18:29 Dose: 30 mg Neomycin/Polymyxin/Bacitracin (Neosporin Triple Antibiotic Oint) 0 gm TOP DAILY [facility] Stop: 10/03/16 13:45 Last Admin: 10/01/16 09:48 Dose: 1 applic Ondansetron HCl (Zofran Inj) 4 mg IVP Q6H PRN PRN Reason: Nausea/Vomiting Pneumococcal Polyvalent Vaccine (Pneumovax 23 Vaccine) 0.5 ml IM .ONCE ONE Stop: 10/03/16 10:01 Saccharomyces Boulardii (Florastor) 250 mg PO DAILY [facility] Last Admin: 10/01/16 09:47 Dose: 250 mg Tolterodine Tartrate (Detrol La) 2 mg PO DAILY [facility] Last Admin: 10/01/16 09:47 Dose: 2 mg Venlafaxine HCl (Effexor Xr) 150 mg PO DAILY [facility] Last Admin: 10/01/16 09:46 Dose: 150 mg Assessment and Plan (1) Cellulitis of right hand Status: Acute (2) Fracture of metacarpal of right hand, closed Status: Acute
[2016-10-02] MEDS: Ceftaroline 600 MG in Sodium Chloride 0.9% 100 ML IVPB SCH ×2 (03:35→15:03)
[2016-10-02 09:22] LABS: BASO # 0.1 K/uL (0.0-0.2); BASO % 0.8 % (0.0-2.0); EOS # 0.2 K/uL (0.0-0.7); EOS % 1.8 % (0.0-4.0); HEMATOCRIT 33.8 % (34.0-47.0); LYMPH # 2.6 K/uL (1.0-4.3); LYMPH % 29.3 % (20.0-40.0); MEAN CELL VOLUME 68.1 fL (81.0-99.0); MEAN CORPUSCULAR HEMOGLOBIN 21.1 pg (27.0-31.0); MEAN PLATELET VOLUME 8.9 fL (7.2-11.7); MONO # 0.4 K/uL (0.0-0.8); NRBC % 0.1 % (0.0-2.0); RED CELL DISTRIBUTION WIDTH 16.5 % (11.5-14.5); WHITE BLOOD COUNT 8.9 K/uL (4.8-10.8)
[2016-10-02] MEDS: Enoxaparin 40 mg Syringe SC SCH (09:31)
[2016-10-02 09:32] LABS: CHLORIDE 103 mmol/L (98-107); POTASSIUM 4.1 mmol/L (3.6-5.2); SODIUM 140 mmol/L (132-148)
[2016-10-02] MEDS: Bacitracin/Neomycin/Polymyxin Oint(30GM) TOP SCH (09:32)
[2016-10-02] MEDS: Venlafaxine 150 mg ER Cap PO SCH (09:32)
[2016-10-02] MEDS: Tolterodine 2 mg ER Cap PO SCH (09:32)
[2016-10-02] MEDS: Saccharomyces Boulardi 250 mg Cap PO SCH (09:32)
[2016-10-02 09:34] LABS: AST/SGOT 39 U/L (14-36); BILIRUBIN,TOTAL 0.7 mg/dL (0.2-1.3); CARBON DIOXIDE 27 mmol/L (22-30); GFR AFRICAN-AMERICAN > 60
[2016-10-02 09:35] LABS: ALKALINE PHOSPHATASE 128 U/L (38-126); ALT/SGPT 71 U/L (9-52); BLOOD UREA NITROGEN 17 mg/dL (7-17); CALCIUM 8.9 mg/dl (8.6-10.4); GLUCOSE,RANDOM 134 mg/dL (65-105); PHOSPHOROUS 3.3 mg/dL (2.5-4.5); TOTAL PROTEIN 6.7 g/dL (6.3-8.3)
[2016-10-02 09:36] LABS: MAGNESIUM 1.9 mg/dL (1.6-2.3)
--- NOTE | 2016-10-02 10:38 | CP.PCM.PN ---
Subjective - Date & Time of Evaluation Date of Evaluation: 10/02/16 Time of Evaluation: 07:00 - Subjective Subjective: HAND SURGERY PROGRESS NOTE FOR DR. ALARCON Patient seen and examined at bedside. She denies pain, numbness, or tingling in the right hand. She is tolerating her diet. OT adjusted resting hand splint yesterday to make it smaller and allow free movement of DIP and PIP joints and give support to 2nd MCP. Currently her hand is resting on 2 pillows. Patient also is being followed by ID for staph aureus bacteremia and UTI. Suprapubic catheter site: staph aureus Objective - Vital Signs/Intake and Output Vital Signs (last 24 hours): Temp Pulse Resp BP Pulse Ox 98.1 F 64 20 108/66 96 10/02/16 07:42 10/02/16 07:42 10/02/16 07:42 10/02/16 07:42 10/02/16 07:42 Intake and Output: 10/02/16 10/02/16 06:59 18:59 Intake Total 450 100 Output Total 300 300 Balance 150 -200 - Medications Medications: Current Medications Baclofen (Lioresal) 20 mg PO TID [facility] Last Admin: 10/02/16 09:32 Dose: 20 mg Enoxaparin Sodium (Lovenox) 40 mg SC DAILY [facility] Last Admin: 10/02/16 09:31 Dose: 40 mg Famotidine (Pepcid) 20 mg PO DAILY [facility] Last Admin: 10/01/16 09:47 Dose: 20 mg Ceftaroline Fosamil 600 mg/ (Sodium Chloride) 100 mls @ 100 mls/hr IVPB Q12H [facility] Last Admin: 10/02/16 03:35 Dose: 100 mls/hr Vancomycin HCl 1 gm/ Sodium (Chloride) 250 mls @ 166.7 mls/hr IVPB Q24H [facility] Last Admin: 10/01/16 21:54 Dose: 166.7 mls/hr Ibuprofen (Motrin Tab) 600 mg PO TID PRN PRN Reason: Pain, Mild (1-3) Neomycin/Polymyxin/Bacitracin (Neosporin Triple Antibiotic Oint) 0 gm TOP DAILY [facility] Stop: 10/03/16 13:45 Last Admin: 10/02/16 09:32 Dose: 1 applic Ondansetron HCl (Zofran Inj) 4 mg IVP Q6H PRN PRN Reason: Nausea/Vomiting Pneumococcal Polyvalent Vaccine (Pneumovax 23 Vaccine) 0.5 ml IM .ONCE ONE Stop: 10/03/16 10:01 Saccharomyces Boulardii (Florastor) 250 mg PO DAILY [facility] Last Admin: 10/02/16 09:32 Dose: 250 mg Tolterodine Tartrate (Detrol La) 2 mg PO DAILY [facility] Last Admin: 10/02/16 09:32 Dose: 2 mg Venlafaxine HCl (Effexor Xr) 150 mg PO DAILY [facility] Last Admin: 10/02/16 09:32 Dose: 150 mg - Labs Labs: 10/02/16 09:12 10/02/16 09:12 - Constitutional Appears: Non-toxic, No Acute Distress - Respiratory Exam Respiratory Exam: NORMAL BREATHING PATTERN. absent: Respiratory Distress - Cardiovascular Exam Cardiovascular Exam: +S1, +S2 - Extremities Exam Additional comments: Right hand with dorsal swelling and erythema. No tenderness. Cap refill <2 secs No pain with flexion/extension of fingers Volar splint in place, wrapped with Sage wrap - Neurological Exam Neurological Exam: Alert, Awake Assessment and Plan - Assessment and Plan (Free Text) Assessment: 61yo F with right hand pain and swelling secondary to minimally displaced fracture of right 2nd metacarpal - No surgery needed due to minimal displacement. - OT resting hand splint was adjusted yesterday to allow movement of DIP and PIP joints and give support to 2nd MCP joint If patient not tolerating splint and if she is unable to keep it in the correct position because of the tremors, it is better to have nothing and instead genia tape index finger to the long finger. - Upon discharge, needs referral for custom splint made as an outpatient ( Camelia or santiago and danae therapy). - She should have custom radial gutter splint that supports the index finger MCP joint and leaves the DIP and PIP joints free. It can include the long finger but leave the ring and small finger free if possible. - Elevate hand on 2 pillows above the level of the heart - Ice and NSAIDs to decrease inflammation - Discussed plan with Dr. Macarena Varghese PGY-3
--- NOTE | 2016-10-02 16:23 | CP.PCM.PN ---
Subjective - Date & Time of Evaluation Date of Evaluation: 10/02/16 Time of Evaluation: 16:21 - Subjective Subjective: PGY1 Note for Dr. Ruffin HPI: 61F patient with a history of MS seen at bedside. Pt has no complaints, she just wants to go home soon. Patient has difficulty with verbal communication due to MS and additional ROS could not be obtained. Objective - Vital Signs/Intake and Output Vital Signs (last 24 hours): Temp Pulse Resp BP Pulse Ox 98.1 F 64 20 108/66 96 10/02/16 07:42 10/02/16 07:42 10/02/16 07:42 10/02/16 07:42 10/02/16 07:42 Intake and Output: 10/02/16 10/02/16 06:59 18:59 Intake Total 450 100 Output Total 300 1300 Balance 150 -1200 - Medications Medications: Current Medications Baclofen (Lioresal) 20 mg PO TID [facility] Last Admin: 10/02/16 15:02 Dose: 20 mg Enoxaparin Sodium (Lovenox) 40 mg SC DAILY [facility] Last Admin: 10/02/16 09:31 Dose: 40 mg Famotidine (Pepcid) 20 mg PO DAILY [facility] Last Admin: 10/02/16 11:06 Dose: 20 mg Ceftaroline Fosamil 600 mg/ (Sodium Chloride) 100 mls @ 100 mls/hr IVPB Q12H [facility] Last Admin: 10/02/16 15:03 Dose: 100 mls/hr Vancomycin HCl 1 gm/ Sodium (Chloride) 250 mls @ 166.7 mls/hr IVPB Q24H [facility] Last Admin: 10/01/16 21:54 Dose: 166.7 mls/hr Ibuprofen (Motrin Tab) 600 mg PO TID PRN PRN Reason: Pain, Mild (1-3) Neomycin/Polymyxin/Bacitracin (Neosporin Triple Antibiotic Oint) 0 gm TOP DAILY [facility] Stop: 10/03/16 13:45 Last Admin: 10/02/16 09:32 Dose: 1 applic Ondansetron HCl (Zofran Inj) 4 mg IVP Q6H PRN PRN Reason: Nausea/Vomiting Pneumococcal Polyvalent Vaccine (Pneumovax 23 Vaccine) 0.5 ml IM .ONCE ONE Stop: 10/03/16 10:01 Saccharomyces Boulardii (Florastor) 250 mg PO DAILY [facility] Last Admin: 10/02/16 09:32 Dose: 250 mg Tolterodine Tartrate (Detrol La) 2 mg PO DAILY [facility] Last Admin: 10/02/16 09:32 Dose: 2 mg Venlafaxine HCl (Effexor Xr) 150 mg PO DAILY [facility] Last Admin: 10/02/16 09:32 Dose: 150 mg - Labs Labs: 10/02/16 09:12 10/02/16 09:12 - Constitutional Appears: Well, Non-toxic, No Acute Distress - Head Exam Head Exam: ATRAUMATIC, NORMAL INSPECTION, NORMOCEPHALIC - Eye Exam Eye Exam: EOMI - ENT Exam ENT Exam: Mucous Membranes Moist - Respiratory Exam Respiratory Exam: Clear to Ausculation Bilateral, NORMAL BREATHING PATTERN - Cardiovascular Exam Cardiovascular Exam: REGULAR RHYTHM - GI/Abdominal Exam GI & Abdominal Exam: Soft, Normal Bowel Sounds. absent: Distended, Tenderness - Extremities Exam Additional comments: Splint on R. arm - Neurological Exam Neurological Exam: Alert, Awake - Psychiatric Exam Psychiatric exam: Normal Affect, Normal Mood - Skin Skin Exam: Dry, Intact, Normal Color, Warm Assessment and Plan - Assessment and Plan (Free Text) Assessment: 2nd metacarpal of right hand fracture * Right Hand Xray- oblique displaced fracture of the distal 2nd metacarpal. Soft tissue swelling * Dr. Fiore consulted - temporary splint in place. F/U outpatient OT for custom splint * NSAIDs for pain Right Hand Cellulitis * ID Consulted Dr. Wilman Arora * Teflaro 600mg Q12 * Vanc 1g Q12 * Motrin PRN, Toradol PRN for pain * Procal = 0.13 * Blood culture = S. aureus * Repeat blood cultures - follow up UTI * UA +3 LE * NS @ 125cc/hr * Urine Culture = S. aureus/Proteus Transaminitis * Most likely 2/2 Imuran * Continue to monitor Hx of Multiple Sclerosis * Baclofen 20mg PO TID Hx of Overactive Bladder * Vesicare 5mg PO daily Hx of Neuropathy * Effexor xR 150mg PO daily Prophylactic Measures * GI PPX: Pepcid 20mg PO daily * DVT PPX: SCDs, lovenox 40 SC daily * Regular Diet
--- NOTE | 2016-10-02 23:09 | CP.PCM.PN ---
Subjective - Date & Time of Evaluation Date of Evaluation: 10/02/16 Time of Evaluation: 23:09 - Subjective Subjective: CHIEF COMPLAINTS TODAY : afebrile c/o pain rt hand rt hand swollen and cellulitic ROS HEENT : N. Resp : No SOB wheezing, cough Cardio : No CP, PND orthopnea GI : No abd. Pain, n/v +VE SUPRAPUBIC CATHETER IN PLACE. 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 Musculoskel : N Ext. : Pedal pulses intact, no edema or calf pain.right hand swollen and cellulitic on the dorsum. Painful on movement. Derm : N Psych : N. PE. Pt. is alert awake in no distress./DYSARTHRIC SPEECH. V.S As noted in the chart Head ,ear nose,throat and eyes : Normal. Neck : Supple with normal carotids. Lungs: Clear air entry. Heart : S1 & S2 normal . . No murmur. S4 + Abd : Soft non tender with normal bowel sounds. +VE SUPRAPUBIC CATHETER IN PLACE. Neuro : Moves all ext. with no localized deficit.RIGHT HAND SWOLLEN AND CELLULITIC./PULSES INTACT. Ext : No edema with intact pulses. Neg. calf tenderness Derm : No rashes or decubitus ulcer. Radiology/Labs . ABDOMEN CATHETER SITE +VE STAPH AUREUS. urine culture +ve MSSA/ PROTEUS MIRABILIS BLOOD CULTURE 1:2 SETS +VE STAPH AUREUS (MSSA ) Asssessment : STAPH AUREUS BACTEREMIA.-MSSA- SOURCE MOST LIKELY CATHETER RELATED- SUPRAPUBIC EXIT SITE INFECTION. RIGHT HAND CELLULITIS FRACTURE PHALANX SECOND METATARSAL RIGHT HAND UTI/SUPRAPUBIC CATHETER HISTORY OF MULTIPLE SCLEROSIS/AND INCREASED SPASTICITY. Plan : cONTINUE iv VANCOMYCIN 1 G ONCE A DAY DAILY.09/28 vANCO TROUGH 30 MINUTES PRIOR TO THE NEXT DOSE AND NOTIFY ME ON iv TEFLARO 600 MG EVERY 12 HOURLY FOR GRAM-NEGATIVE AND GRAM-POSITIVE COVERAGE.09/29 FOLLOW-UP ABDOMINAL WOUND CULTURES IDENTIFICATION AND SENSITIVITY fOLLOW-UP REPEAT BLOOD CULTURES TO ADJUST ANTIBIOTICS. LWC PER HAND SURGEON dR. ALARCON. Objective - Vital Signs/Intake and Output Vital Signs (last 24 hours): Temp Pulse Resp BP Pulse Ox 98.2 F 87 20 122/67 95 10/02/16 15:00 10/02/16 15:00 10/02/16 15:00 10/02/16 15:00 10/02/16 15:00 Intake and Output: 10/02/16 10/03/16 18:59 06:59 Intake Total 100 800 Output Total 1300 Balance -1200 800 - Medications Medications: Current Medications Baclofen (Lioresal) 20 mg PO TID [facility] Last Admin: 10/02/16 18:48 Dose: 20 mg Enoxaparin Sodium (Lovenox) 40 mg SC DAILY [facility] Last Admin: 10/02/16 09:31 Dose: 40 mg Famotidine (Pepcid) 20 mg PO DAILY [facility] Last Admin: 10/02/16 11:06 Dose: 20 mg Ceftaroline Fosamil 600 mg/ (Sodium Chloride) 100 mls @ 100 mls/hr IVPB Q12H [facility] Last Admin: 10/02/16 15:03 Dose: 100 mls/hr Vancomycin HCl 1 gm/ Sodium (Chloride) 250 mls @ 166.7 mls/hr IVPB Q24H [facility] Last Admin: 10/02/16 20:39 Dose: 166.7 mls/hr Ibuprofen (Motrin Tab) 600 mg PO TID PRN PRN Reason: Pain, Mild (1-3) Last Admin: 10/02/16 20:54 Dose: 600 mg Neomycin/Polymyxin/Bacitracin (Neosporin Triple Antibiotic Oint) 0 gm TOP DAILY [facility] Stop: 10/03/16 13:45 Last Admin: 10/02/16 09:32 Dose: 1 applic Ondansetron HCl (Zofran Inj) 4 mg IVP Q6H PRN PRN Reason: Nausea/Vomiting Pneumococcal Polyvalent Vaccine (Pneumovax 23 Vaccine) 0.5 ml IM .ONCE ONE Stop: 10/03/16 10:01 Saccharomyces Boulardii (Florastor) 250 mg PO DAILY [facility] Last Admin: 10/02/16 09:32 Dose: 250 mg Tolterodine Tartrate (Detrol La) 2 mg PO DAILY [facility] Last Admin: 10/02/16 09:32 Dose: 2 mg Venlafaxine HCl (Effexor Xr) 150 mg PO DAILY [facility] Last Admin: 10/02/16 09:32 Dose: 150 mg - Labs Labs: 10/02/16 09:12 10/02/16 09:12 Assessment and Plan (1) Cellulitis of right hand Status: Acute (2) Fracture of metacarpal of right hand, closed Status: Acute
--- NOTE | 2016-10-03 00:58 | CP.PCM.PN ---
Subjective - Date & Time of Evaluation Date of Evaluation: 10/03/16 Time of Evaluation: 00:56 - Subjective Subjective: SURGERY NOTE FOR DR. ALARCON 61F seen and examined at bedside. Patient resting comfortably. 61yo F with right hand pain and swelling secondary to minimally displaced fracture of right 2nd metacarpal - No surgery needed due to minimal displacement. - OT resting hand splint was adjusted yesterday to allow movement of DIP and PIP joints and give support to 2nd MCP joint If patient not tolerating splint and if she is unable to keep it in the correct position because of the tremors, it is better to have nothing and instead genia tape index finger to the long finger. - Upon discharge, needs referral for custom splint made as an outpatient ( Camelia or danelle therapy). - She should have custom radial gutter splint that supports the index finger MCP joint and leaves the DIP and PIP joints free. It can include the long finger but leave the ring and small finger free if possible. - Elevate hand on 2 pillows above the level of the heart - Ice and NSAIDs to decrease inflammation Objective - Vital Signs/Intake and Output Vital Signs (last 24 hours): Temp Pulse Resp BP Pulse Ox 98.2 F 87 20 122/67 95 10/02/16 15:00 10/02/16 15:00 10/02/16 15:00 10/02/16 15:00 10/02/16 15:00 Intake and Output: 10/02/16 10/03/16 18:59 06:59 Intake Total 100 800 Output Total 1300 Balance -1200 800 - Medications Medications: Current Medications Baclofen (Lioresal) 20 mg PO TID [facility] Last Admin: 10/02/16 18:48 Dose: 20 mg Enoxaparin Sodium (Lovenox) 40 mg SC DAILY [facility] Last Admin: 10/02/16 09:31 Dose: 40 mg Famotidine (Pepcid) 20 mg PO DAILY [facility] Last Admin: 10/02/16 11:06 Dose: 20 mg Ceftaroline Fosamil 600 mg/ (Sodium Chloride) 100 mls @ 100 mls/hr IVPB Q12H [facility] Last Admin: 10/02/16 15:03 Dose: 100 mls/hr Vancomycin HCl 1 gm/ Sodium (Chloride) 250 mls @ 166.7 mls/hr IVPB Q24H [facility] Last Admin: 10/02/16 20:39 Dose: 166.7 mls/hr Ibuprofen (Motrin Tab) 600 mg PO TID PRN PRN Reason: Pain, Mild (1-3) Last Admin: 10/02/16 20:54 Dose: 600 mg Mupirocin (Bactroban Ointment) 0 gm TOP BID [facility] Ondansetron HCl (Zofran Inj) 4 mg IVP Q6H PRN PRN Reason: Nausea/Vomiting Pneumococcal Polyvalent Vaccine (Pneumovax 23 Vaccine) 0.5 ml IM .ONCE ONE Stop: 10/03/16 10:01 Saccharomyces Boulardii (Florastor) 250 mg PO DAILY [facility] Last Admin: 10/02/16 09:32 Dose: 250 mg Tolterodine Tartrate (Detrol La) 2 mg PO DAILY [facility] Last Admin: 10/02/16 09:32 Dose: 2 mg Venlafaxine HCl (Effexor Xr) 150 mg PO DAILY [facility] Last Admin: 10/02/16 09:32 Dose: 150 mg - Labs Labs: 10/02/16 09:12 10/02/16 09:12 - Constitutional Appears: Non-toxic, No Acute Distress - Extremities Exam Additional comments: Right hand with dorsal swelling and erythema. No tenderness. Cap refill <2 secs No pain with flexion/extension of fingers Currently no splint in place - Neurological Exam Neurological Exam: Alert, Awake Assessment and Plan - Assessment and Plan (Free Text) Assessment: 61yo F with right hand pain and swelling secondary to minimally displaced fracture of right 2nd metacarpal - No surgery needed due to minimal displacement. - OT resting hand splint was adjusted yesterday to allow movement of DIP and PIP joints and give support to 2nd MCP joint If patient not tolerating splint and if she is unable to keep it in the correct position because of the tremors, it is better to have nothing and instead genia tape index finger to the long finger. - Upon discharge, needs referral for custom splint made as an outpatient ( Camelia or santiago and danae therapy). - She should have custom radial gutter splint that supports the index finger MCP joint and leaves the DIP and PIP joints free. It can include the long finger but leave the ring and small finger free if possible. - Elevate hand on 2 pillows above the level of the heart - Ice and NSAIDs to decrease inflammation Jerson Conroy, PGY2
[2016-10-03] MEDS: Ceftaroline 600 MG in Sodium Chloride 0.9% 100 ML IVPB SCH ×2 (03:14→14:04)
[2016-10-03 07:48] LABS: BASO # 0.1 K/uL (0.0-0.2); EOS # 0.1 K/uL (0.0-0.7); EOS % 1.8 % (0.0-4.0); HEMATOCRIT 32.5 % (34.0-47.0); LYMPH # 2.1 K/uL (1.0-4.3); MEAN CELL VOLUME 67.5 fL (81.0-99.0); MEAN CORPUSCULAR HEMOGLOBIN 21.2 pg (27.0-31.0); MEAN CORPUSCULAR HGB CONC 31.4 g/dL (33.0-37.0); MEAN PLATELET VOLUME 8.8 fL (7.2-11.7); MONO # 0.5 K/uL (0.0-0.8); MONO % 5.8 % (0.0-10.0); RED CELL DISTRIBUTION WIDTH 16.8 % (11.5-14.5); WHITE BLOOD COUNT 7.9 K/uL (4.8-10.8)
[2016-10-03 08:06] LABS: RBC URINE 2 /hpf (0-3); URINE BILIRUBIN NEGATIVE (NEGATIVE); URINE BLOOD NEGATIVE (NEGATIVE); URINE COLOR Yellow (YELLOW); URINE GLUCOSE (UA) NORMAL (Normal); URINE KETONE NEGATIVE (NEGATIVE); URINE LEUKOCYTE ESTERASE TRACE Leu/uL (Negative); URINE PROTEIN NEGATIVE (NEGATIVE); URINE UROBILINOGEN NORMAL mg/dL (0.2-1.0); WBC URINE 10 /hpf (0-5)
[2016-10-03 08:11] LABS: CHLORIDE 103 mmol/L (98-107); SODIUM 139 mmol/L (132-148)
[2016-10-03 08:12] LABS: POTASSIUM 3.8 mmol/L (3.6-5.2)
[2016-10-03 08:13] LABS: GFR AFRICAN-AMERICAN > 60
[2016-10-03 08:14] LABS: ALB/GLOB RATIO 0.9 (1.0-2.1); ALKALINE PHOSPHATASE 133 U/L (38-126); ALT/SGPT 66 U/L (9-52); AST/SGOT 27 U/L (14-36); BILIRUBIN,TOTAL 0.6 mg/dL (0.2-1.3); BLOOD UREA NITROGEN 14 mg/dL (7-17); CARBON DIOXIDE 28 mmol/L (22-30); GLUCOSE,RANDOM 95 mg/dL (65-105); TOTAL PROTEIN 6.4 g/dL (6.3-8.3)
[2016-10-03 08:15] LABS: CALCIUM 8.7 mg/dl (8.6-10.4); PHOSPHOROUS 3.6 mg/dL (2.5-4.5)
[2016-10-03] MEDS ORDERED: Pneumococcal 23-Valent Vaccine IM ONE (10:00)
[2016-10-03] MEDS: Enoxaparin 40 mg Syringe SC SCH (10:25)
[2016-10-03] MEDS: Tolterodine 2 mg ER Cap PO SCH (10:26)
[2016-10-03] MEDS: Saccharomyces Boulardi 250 mg Cap PO SCH (10:26)
[2016-10-03] MEDS: Venlafaxine 150 mg ER Cap PO SCH (10:27)
--- NOTE | 2016-10-03 12:22 | CP.PCM.PN ---
<Babatunde Hernandez - Last Filed: 10/03/16 12:25> Subjective - Date & Time of Evaluation Date of Evaluation: 10/03/16 Time of Evaluation: 12:22 - Subjective Subjective: PGY1 Note for Dr. Abbott HPI: Objective - Vital Signs/Intake and Output Vital Signs (last 24 hours): Temp Pulse Resp BP Pulse Ox 97.4 F L 68 20 119/56 L 95 10/03/16 08:01 10/03/16 08:01 10/03/16 08:01 10/03/16 08:01 10/03/16 08:01 Intake and Output: 10/03/16 10/03/16 06:59 18:59 Intake Total 1020 Output Total 900 Balance 120 - Medications Medications: Current Medications Baclofen (Lioresal) 20 mg PO TID [facility] Last Admin: 10/03/16 10:26 Dose: 20 mg Enoxaparin Sodium (Lovenox) 40 mg SC DAILY [facility] Last Admin: 10/03/16 10:25 Dose: 40 mg Famotidine (Pepcid) 20 mg PO DAILY [facility] Last Admin: 10/03/16 10:26 Dose: 20 mg Ceftaroline Fosamil 600 mg/ (Sodium Chloride) 100 mls @ 100 mls/hr IVPB Q12H [facility] Last Admin: 10/03/16 03:14 Dose: 100 mls/hr Vancomycin HCl 1 gm/ Sodium (Chloride) 250 mls @ 166.7 mls/hr IVPB Q24H [facility] Last Admin: 10/02/16 20:39 Dose: 166.7 mls/hr Ibuprofen (Motrin Tab) 600 mg PO TID PRN PRN Reason: Pain, Mild (1-3) Last Admin: 10/02/16 20:54 Dose: 600 mg Mupirocin (Bactroban Ointment) 0 gm TOP BID [facility] Last Admin: 10/03/16 11:28 Dose: 1 applic Ondansetron HCl (Zofran Inj) 4 mg IVP Q6H PRN PRN Reason: Nausea/Vomiting Saccharomyces Boulardii (Florastor) 250 mg PO DAILY [facility] Last Admin: 10/03/16 10:26 Dose: 250 mg Tolterodine Tartrate (Detrol La) 2 mg PO DAILY [facility] Last Admin: 10/03/16 10:26 Dose: 2 mg Venlafaxine HCl (Effexor Xr) 150 mg PO DAILY [facility] Last Admin: 10/03/16 10:27 Dose: 150 mg - Labs Labs: 10/03/16 07:38 10/03/16 07:38 - Constitutional Appears: Well, Non-toxic, No Acute Distress, Chronically Ill - Eye Exam Pupil Exam: Mydriatic - ENT Exam ENT Exam: Mucous Membranes Moist - Respiratory Exam Respiratory Exam: Clear to Ausculation Bilateral, NORMAL BREATHING PATTERN - Cardiovascular Exam Cardiovascular Exam: REGULAR RHYTHM, RRR. absent: Bradycardia, Tachycardia, Murmur - GI/Abdominal Exam GI & Abdominal Exam: Soft, Normal Bowel Sounds. absent: Distended, Tenderness - Extremities Exam Additional comments: contracted feet Arm less warm and less red, ice pack in place, arm elevated on pillows - Neurological Exam Neurological Exam: Alert, Awake Additional comments: responds appropriately to questions - Psychiatric Exam Psychiatric exam: Normal Affect, Normal Mood - Skin Skin Exam: Dry, Intact, Normal Color, Warm Assessment and Plan - Assessment and Plan (Free Text) Assessment: 2nd metacarpal of right hand fracture * Right Hand Xray- oblique displaced fracture of the distal 2nd metacarpal. Soft tissue swelling * Dr. Fiore consulted - temporary splint in place. F/U outpatient OT for custom splint * NSAIDs for pain Right Hand Cellulitis * ID Consulted Dr. Wilman Arora * Teflaro 600mg Q12 * Vanc 1g Q12 * Motrin PRN, Toradol PRN for pain * Procal = 0.13 * Functional Quadriplegia Bacteremia * Blood culture = S. aureus * Repeated blood cultures today - F/U UTI * UA +3 LE * NS @ 125cc/hr * Urine Culture = S. aureus/Proteus Transaminitis * Most likely 2/2 Imuran * Continue to monitor Hx of Multiple Sclerosis * Baclofen 20mg PO TID Hx of Overactive Bladder * Vesicare 5mg PO daily Hx of Neuropathy * Effexor xR 150mg PO daily Prophylactic Measures * GI PPX: Pepcid 20mg PO daily * DVT PPX: SCDs, lovenox 40 SC daily * Regular Diet <Abbott,Peter H - Last Filed: 10/03/16 14:25> Objective - Vital Signs/Intake and Output Vital Signs (last 24 hours): Temp Pulse Resp BP Pulse Ox 97.4 F L 68 20 119/56 L 95 10/03/16 08:01 10/03/16 08:01 10/03/16 08:01 10/03/16 08:01 10/03/16 08:01 Intake and Output: 10/03/16 10/03/16 06:59 18:59 Intake Total 1020 Output Total 900 Balance 120 - Medications Medications: Current Medications Baclofen (Lioresal) 20 mg PO TID [facility] Last Admin: 10/03/16 14:05 Dose: 20 mg Enoxaparin Sodium (Lovenox) 40 mg SC DAILY [facility] Last Admin: 10/03/16 10:25 Dose: 40 mg Famotidine (Pepcid) 20 mg PO DAILY [facility] Last Admin: 10/03/16 10:26 Dose: 20 mg Ceftaroline Fosamil 600 mg/ (Sodium Chloride) 100 mls @ 100 mls/hr IVPB Q12H [facility] Last Admin: 10/03/16 14:04 Dose: 100 mls/hr Vancomycin HCl 1 gm/ Sodium (Chloride) 250 mls @ 166.7 mls/hr IVPB Q24H [facility] Last Admin: 10/02/16 20:39 Dose: 166.7 mls/hr Ibuprofen (Motrin Tab) 600 mg PO TID PRN PRN Reason: Pain, Mild (1-3) Last Admin: 10/02/16 20:54 Dose: 600 mg Mupirocin (Bactroban Ointment) 0 gm TOP BID [facility] Last Admin: 10/03/16 11:28 Dose: 1 applic Ondansetron HCl (Zofran Inj) 4 mg IVP Q6H PRN PRN Reason: Nausea/Vomiting Saccharomyces Boulardii (Florastor) 250 mg PO DAILY [facility] Last Admin: 10/03/16 10:26 Dose: 250 mg Tolterodine Tartrate (Detrol La) 2 mg PO DAILY [facility] Last Admin: 10/03/16 10:26 Dose: 2 mg Venlafaxine HCl (Effexor Xr) 150 mg PO DAILY [facility] Last Admin: 10/03/16 10:27 Dose: 150 mg - Labs Labs: 10/03/16 07:38 10/03/16 07:38 Attending/Attestation - Attestation I have personally seen and examined this patient.: Yes I have fully participated in the care of the patient.: Yes I have reviewed all pertinent clinical information, including history, physical exam and plan: Yes Notes (Text): Medical Attending: Patient was seen and examined by me. Agree with the above note by the resident The patient had family member present in the room and we all discussed together. The patient has MS and has had difficulty speaking however she was able to communicate to me that her right hand did feel better. According to the family the hand looks better and is less erthematous and less swollen. Appreciate surgery seeing patient as well, patient will need follow up as well as splintting when she is out patient. For now we are continuing IV abx as she was positive MSSA in blood, urine. WBC is better. Also afebrile at this time. She does breath hard on exam and I asked the family member present and per family this is her baseline breathing thank you Earl Abbott
--- NOTE | 2016-10-03 21:51 | CP.PCM.PN ---
Subjective - Date & Time of Evaluation Date of Evaluation: 10/03/16 Time of Evaluation: 21:51 - Subjective Subjective: CHIEF COMPLAINTS TODAY : afebrile c/o pain rt hand but less rt hand improved swelling and cellulitis. hand surgeons follow-up appreciated. Off splint. ROS HEENT : N. Resp : No SOB wheezing, cough Cardio : No CP, PND orthopnea GI : No abd. Pain, n/v +VE SUPRAPUBIC CATHETER IN PLACE. 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 Musculoskel : N Ext. : Pedal pulses intact, no edema or calf pain. right hand swollen and cellulitic on the dorsum. Painful on movement. Derm : N Psych : N. PE. Pt. is alert awake in no distress./DYSARTHRIC SPEECH. V.S As noted in the chart Head ,ear nose,throat and eyes : Normal. Neck : Supple with normal carotids. Lungs: Clear air entry. Heart : S1 & S2 normal . . No murmur. S4 + Abd : Soft non tender with normal bowel sounds. +VE SUPRAPUBIC CATHETER IN PLACE. Neuro : Moves all ext. with no localized deficit.RIGHT HAND SWOLLEN AND CELLULITIC./PULSES INTACT. swelling improving with decreasing cellulitis. Ext : No edema with intact pulses. Neg. calf tenderness Derm : No rashes or decubitus ulcer. Radiology/Labs . ABDOMEN CATHETER SITE +VE STAPH AUREUS./-gram-negative aisha urine culture +ve MSSA/ PROTEUS MIRABILIS BLOOD CULTURE 1:2 SETS +VE STAPH AUREUS (MSSA ) Asssessment : STAPH AUREUS BACTEREMIA.-MSSA- SOURCE MOST LIKELY CATHETER RELATED- SUPRAPUBIC EXIT SITE INFECTION. RIGHT HAND CELLULITIS FRACTURE PHALANX SECOND METATARSAL RIGHT HAND UTI/SUPRAPUBIC CATHETER HISTORY OF MULTIPLE SCLEROSIS/AND INCREASED SPASTICITY. Plan : cONTINUE iv VANCOMYCIN 1 G ONCE A DAY DAILY.09/28 vANCO TROUGH 30 MINUTES PRIOR TO THE NEXT DOSE AND NOTIFY ME ON iv TEFLARO 600 MG EVERY 12 HOURLY FOR GRAM-NEGATIVE AND GRAM-POSITIVE COVERAGE.09/29 FOLLOW-UP ABDOMINAL WOUND CULTURES IDENTIFICATION AND SENSITIVITY fOLLOW-UP REPEAT BLOOD CULTURES TO ADJUST ANTIBIOTICS. LWC PER HAND SURGEON dR. ALARCON. Objective - Vital Signs/Intake and Output Vital Signs (last 24 hours): Temp Pulse Resp BP Pulse Ox 97.7 F 89 20 134/77 95 10/03/16 15:00 10/03/16 15:00 10/03/16 15:00 10/03/16 15:00 10/03/16 15:00 Intake and Output: 10/03/16 10/04/16 18:59 06:59 Intake Total 550 Output Total 900 Balance -350 - Medications Medications: Current Medications Baclofen (Lioresal) 20 mg PO TID [facility] Last Admin: 10/03/16 17:38 Dose: 20 mg Enoxaparin Sodium (Lovenox) 40 mg SC DAILY [facility] Last Admin: 10/03/16 10:25 Dose: 40 mg Famotidine (Pepcid) 20 mg PO DAILY [facility] Last Admin: 10/03/16 10:26 Dose: 20 mg Ceftaroline Fosamil 600 mg/ (Sodium Chloride) 100 mls @ 100 mls/hr IVPB Q12H [facility] Last Admin: 10/03/16 14:04 Dose: 100 mls/hr Vancomycin HCl 1 gm/ Sodium (Chloride) 250 mls @ 166.7 mls/hr IVPB Q24H [facility] Last Admin: 10/02/16 20:39 Dose: 166.7 mls/hr Ibuprofen (Motrin Tab) 600 mg PO TID PRN PRN Reason: Pain, Mild (1-3) Last Admin: 10/02/16 20:54 Dose: 600 mg Mupirocin (Bactroban Ointment) 0 gm TOP BID [facility] Last Admin: 10/03/16 17:40 Dose: 1 applic Ondansetron HCl (Zofran Inj) 4 mg IVP Q6H PRN PRN Reason: Nausea/Vomiting Saccharomyces Boulardii (Florastor) 250 mg PO DAILY [facility] Last Admin: 10/03/16 10:26 Dose: 250 mg Tolterodine Tartrate (Detrol La) 2 mg PO DAILY [facility] Last Admin: 10/03/16 10:26 Dose: 2 mg Venlafaxine HCl (Effexor Xr) 150 mg PO DAILY [facility] Last Admin: 10/03/16 10:27 Dose: 150 mg - Labs Labs: 10/03/16 07:38 10/03/16 07:38 Assessment and Plan (1) Cellulitis of right hand Status: Acute (2) Fracture of metacarpal of right hand, closed Status: Acute
--- NOTE | 2016-10-04 02:09 | CP.PCM.PN ---
<Rosalba Daly - Last Filed: 10/04/16 02:07> Subjective - Date & Time of Evaluation Date of Evaluation: 10/04/16 Time of Evaluation: 02:00 - Subjective Subjective: Medicine Note for Dr. Lana Long Patient was seen and examined at bedside. Patient is resting. No acute complaints. Objective - Vital Signs/Intake and Output Vital Signs (last 24 hours): Temp Pulse Resp BP Pulse Ox 98.3 F 82 20 113/73 95 10/03/16 23:00 10/03/16 23:00 10/03/16 23:00 10/03/16 23:00 10/03/16 23:00 Intake and Output: 10/03/16 10/04/16 18:59 06:59 Intake Total 550 250 Output Total 900 550 Balance -350 -300 - Medications Medications: Current Medications Baclofen (Lioresal) 20 mg PO TID [facility] Last Admin: 10/03/16 17:38 Dose: 20 mg Enoxaparin Sodium (Lovenox) 40 mg SC DAILY [facility] Last Admin: 10/03/16 10:25 Dose: 40 mg Famotidine (Pepcid) 20 mg PO DAILY [facility] Last Admin: 10/03/16 10:26 Dose: 20 mg Ceftaroline Fosamil 600 mg/ (Sodium Chloride) 100 mls @ 100 mls/hr IVPB Q12H [facility] Last Admin: 10/03/16 14:04 Dose: 100 mls/hr Vancomycin HCl 1 gm/ Sodium (Chloride) 250 mls @ 166.7 mls/hr IVPB Q24H [facility] Last Admin: 10/03/16 22:00 Dose: 166.7 mls/hr Ibuprofen (Motrin Tab) 600 mg PO TID PRN PRN Reason: Pain, Mild (1-3) Last Admin: 10/03/16 22:05 Dose: 600 mg Mupirocin (Bactroban Ointment) 0 gm TOP BID [facility] Last Admin: 10/03/16 17:40 Dose: 1 applic Ondansetron HCl (Zofran Inj) 4 mg IVP Q6H PRN PRN Reason: Nausea/Vomiting Saccharomyces Boulardii (Florastor) 250 mg PO DAILY [facility] Last Admin: 10/03/16 10:26 Dose: 250 mg Tolterodine Tartrate (Detrol La) 2 mg PO DAILY [facility] Last Admin: 10/03/16 10:26 Dose: 2 mg Venlafaxine HCl (Effexor Xr) 150 mg PO DAILY [facility] Last Admin: 10/03/16 10:27 Dose: 150 mg - Labs Labs: 10/03/16 07:38 10/03/16 07:38 - Constitutional Appears: No Acute Distress - Head Exam Head Exam: NORMAL INSPECTION, NORMOCEPHALIC - Eye Exam Eye Exam: EOMI, Normal appearance, PERRL Pupil Exam: NORMAL ACCOMODATION - ENT Exam ENT Exam: Mucous Membranes Moist - Respiratory Exam Respiratory Exam: Clear to Ausculation Bilateral, NORMAL BREATHING PATTERN. absent: Wheezes - Cardiovascular Exam Cardiovascular Exam: REGULAR RHYTHM, RRR - GI/Abdominal Exam GI & Abdominal Exam: Soft, Normal Bowel Sounds. absent: Distended, Tenderness - Extremities Exam Extremities Exam: Normal Inspection. absent: Pedal Edema, Tenderness - Neurological Exam Neurological Exam: Alert, Awake, Oriented x3 - Skin Skin Exam: Dry, Intact, Normal Color, Warm Assessment and Plan - Assessment and Plan (Free Text) Plan: 2nd metacarpal of right hand fracture * Right Hand Xray- oblique displaced fracture of the distal 2nd metacarpal. Soft tissue swelling * Dr. Fiore consulted - temporary splint in place. F/U outpatient OT for custom splint * NSAIDs for pain Right Hand Cellulitis * ID Consulted Dr. Wilman Arora * Teflaro 600mg Q12 * Vanc 1g Q12 * Motrin PRN, Toradol PRN for pain * Procal = 0.13 * Functional Quadriplegia Bacteremia * Blood culture = S. aureus * Repeated blood cultures F/U UTI * UA +3 LE * NS @ 125cc/hr * Urine Culture = S. aureus/Proteus Transaminitis * Most likely 2/2 Imuran * Continue to monitor Hx of Multiple Sclerosis * Baclofen 20mg PO TID Hx of Overactive Bladder * Vesicare 5mg PO daily Hx of Neuropathy * Effexor xR 150mg PO daily Prophylactic Measures * GI PPX: Pepcid 20mg PO daily * DVT PPX: SCDs, lovenox 40 SC daily * Regular Diet DW Malika Schmitt DO, PGY-1 <Bill Long - Last Filed: 10/04/16 17:23> Objective - Vital Signs/Intake and Output Vital Signs (last 24 hours): Temp Pulse Resp BP Pulse Ox 97.5 F L 70 20 120/71 95 10/04/16 08:00 10/04/16 08:00 10/04/16 08:00 10/04/16 08:00 10/04/16 08:00 Intake and Output: 10/04/16 10/04/16 06:59 18:59 Intake Total 470 Output Total 1150 800 Balance -680 -800 - Medications Medications: Current Medications Baclofen (Lioresal) 20 mg PO TID [facility] Last Admin: 10/04/16 14:09 Dose: 20 mg Enoxaparin Sodium (Lovenox) 40 mg SC DAILY [facility] Last Admin: 10/04/16 09:46 Dose: 40 mg Famotidine (Pepcid) 20 mg PO DAILY [facility] Last Admin: 10/04/16 09:45 Dose: 20 mg Ceftaroline Fosamil 600 mg/ (Sodium Chloride) 100 mls @ 100 mls/hr IVPB Q12H [facility] Last Admin: 10/04/16 14:10 Dose: 100 mls/hr Ciprofloxacin (Cipro 400mg/200ml Dsw) 400 mg in 200 mls @ 133 mls/hr IVPB Q12H [facility] Ibuprofen (Motrin Tab) 600 mg PO TID PRN PRN Reason: Pain, Mild (1-3) Last Admin: 10/03/16 22:05 Dose: 600 mg Mupirocin (Bactroban Ointment) 0 gm TOP BID [facility] Last Admin: 10/04/16 09:46 Dose: 1 applic Ondansetron HCl (Zofran Inj) 4 mg IVP Q6H PRN PRN Reason: Nausea/Vomiting Saccharomyces Boulardii (Florastor) 250 mg PO DAILY [facility] Last Admin: 10/04/16 09:47 Dose: 250 mg Tolterodine Tartrate (Detrol La) 2 mg PO DAILY [facility] Last Admin: 10/04/16 09:45 Dose: 2 mg Venlafaxine HCl (Effexor Xr) 150 mg PO DAILY [facility] Last Admin: 10/04/16 09:46 Dose: 150 mg - Labs Labs: 10/04/16 12:16 10/04/16 12:16 Attending/Attestation - Attestation I have personally seen and examined this patient.: Yes I have fully participated in the care of the patient.: Yes I have reviewed all pertinent clinical information, including history, physical exam and plan: Yes Notes (Text): 10/04/16 17:12 Patient was seen and examined at 2 PM 10/04/16 371 A Upon FULL ROS patient states NO to everything. Soft bowel movement this morning as per Nurse Joanie Exam: General: NAD and following commands HEENT: NCA, Left Pupil is greater in size than the Right Pupil and they are both reactive to light and accomodation, EOMI, Left Eye is slightly deviated laterally, NO cervical/supraclavicular/submandibular lymphadenopathy, NO pharyngeal erythema/exudate, Mucous Membranes are moist, Nasal Turbinates are nonedematous/nonerythematous Cardio: NS1 and NS2, NO M/R/G Respiratory: CTA B/L NO R/R/W GI: BSx4, Soft, NT, Central Obesity therefore Liver and Spleen could not be adequately palpated, NO guarding/rebound tenderness Ext: NO edema, Pulses are strong and equal, Capillary Refill is 2 seconds, Area of Erythema in the posterior aspect of the Right Hand with some mile edema located between the Thumb and Finger #2 Neuro: CN II through XII are grossly intact Assessments: 1). Right Hand 2nd Metacarpal Fx Will need custom splint as documented by Surgical Team 2). Cellulitis of the Right Hand D/C'd Teflaro and Vanomycin after my conversation with ID Dr. Lana Arora and started Ciprofloxacin 400 mg IV Q12H as this will also cover the UTI, Bactermia , and the Suprapubic Catheter insertion site culture 3). UTI and Bacteremia See above Urine Culture 09/29/16 shows Proteus mirabilis and S. aureus Blood Culture 09/29/16 shows S. aureus Repeat Urine Culture 10/03/16 did NOT show any growth Blood Cutlure 10/02/16 is negative to date 4). Suprapubic Catheter Insertion Site (+) Culture See above S. aureus and Proteus mirabilis 5). Elevated LFTs 6). Hx MS/Neuropathy Baclofen 20 mg PO 2x/day Venlafaxine 150 mg PO 1x/day 7). Hx Overactive Bladder Detrol LA 2 mg PO 1x/day 8). Prophylactic Measure Lovenox 40 mg SC 1x/day Pepcid 20 mg PO 1x/day Ibuprofen 600 mg PO TID PRN Pain Zofran 4 mg IV Q6H PRN N/V Florastor 250 mg PO 1x/day Bill Long D.O.
[2016-10-04] MEDS: Ceftaroline 600 MG in Sodium Chloride 0.9% 100 ML IVPB SCH ×2 (03:44→14:10)
[2016-10-04] MEDS: Tolterodine 2 mg ER Cap PO SCH (09:45)
[2016-10-04] MEDS: Venlafaxine 150 mg ER Cap PO SCH (09:46)
[2016-10-04] MEDS: Enoxaparin 40 mg Syringe SC SCH (09:46)
[2016-10-04] MEDS: Saccharomyces Boulardi 250 mg Cap PO SCH (09:47)
--- NOTE | 2016-10-04 10:06 | CP.PCM.PN ---
Subjective - Date & Time of Evaluation Date of Evaluation: 10/04/16 Time of Evaluation: 07:40 - Subjective Subjective: Plastic Surgery Pt S&E, NAEO. feeling better with genia tape for finger. swelling and bruising decreasing. Objective - Vital Signs/Intake and Output Vital Signs (last 24 hours): Temp Pulse Resp BP Pulse Ox 97.5 F L 70 20 120/71 95 10/04/16 08:00 10/04/16 08:00 10/04/16 08:00 10/04/16 08:00 10/04/16 08:00 Intake and Output: 10/04/16 10/04/16 06:59 18:59 Intake Total 470 Output Total 1150 Balance -680 - Medications Medications: Current Medications Baclofen (Lioresal) 20 mg PO TID [facility] Last Admin: 10/04/16 09:45 Dose: 20 mg Enoxaparin Sodium (Lovenox) 40 mg SC DAILY [facility] Last Admin: 10/04/16 09:46 Dose: 40 mg Famotidine (Pepcid) 20 mg PO DAILY [facility] Last Admin: 10/04/16 09:45 Dose: 20 mg Ceftaroline Fosamil 600 mg/ (Sodium Chloride) 100 mls @ 100 mls/hr IVPB Q12H [facility] Last Admin: 10/04/16 03:44 Dose: 100 mls/hr Vancomycin HCl 1 gm/ Sodium (Chloride) 250 mls @ 166.7 mls/hr IVPB Q24H [facility] Last Admin: 10/03/16 22:00 Dose: 166.7 mls/hr Ibuprofen (Motrin Tab) 600 mg PO TID PRN PRN Reason: Pain, Mild (1-3) Last Admin: 10/03/16 22:05 Dose: 600 mg Mupirocin (Bactroban Ointment) 0 gm TOP BID [facility] Last Admin: 10/04/16 09:46 Dose: 1 applic Ondansetron HCl (Zofran Inj) 4 mg IVP Q6H PRN PRN Reason: Nausea/Vomiting Saccharomyces Boulardii (Florastor) 250 mg PO DAILY [facility] Last Admin: 10/04/16 09:47 Dose: 250 mg Tolterodine Tartrate (Detrol La) 2 mg PO DAILY [facility] Last Admin: 10/04/16 09:45 Dose: 2 mg Venlafaxine HCl (Effexor Xr) 150 mg PO DAILY [facility] Last Admin: 10/04/16 09:46 Dose: 150 mg - Labs Labs: 10/03/16 07:38 10/03/16 07:38 - Constitutional Appears: Non-toxic, No Acute Distress - Head Exam Head Exam: ATRAUMATIC - Respiratory Exam Respiratory Exam: NORMAL BREATHING PATTERN. absent: Respiratory Distress - Extremities Exam Additional comments: Right hand with decreasing dorsal swelling and erythema. No tenderness. Cap refill <2 secs No pain with flexion/extension of fingers Currently genia tape in place - Neurological Exam Neurological Exam: Alert, Awake - Skin Skin Exam: Dry, Warm Assessment and Plan - Assessment and Plan (Free Text) Assessment: 61yo F with minimally displaced fracture of right 2nd metacarpal Plan: - Upon discharge, needs referral for custom splint made as an outpatient ( Camelia or santiago and danae therapy). - She should have custom radial gutter splint that supports the index finger MCP joint and leaves the DIP and PIP joints free. It can include the long finger but leave the ring and small finger free if possible. - Elevate hand on 2 pillows above the level of the heart - Ice and NSAIDs to decrease inflammation D/W Dr. Macarena Varghese PGY4
[2016-10-04 12:20] LABS: BASO # 0.1 K/uL (0.0-0.2); BASO % 0.7 % (0.0-2.0); EOS # 0.1 K/uL (0.0-0.7); EOS % 1.6 % (0.0-4.0); HEMATOCRIT 35.7 % (34.0-47.0); LYMPH # 2.6 K/uL (1.0-4.3); LYMPH % 30.6 % (20.0-40.0); MEAN CELL VOLUME 68.1 fL (81.0-99.0); MEAN CORPUSCULAR HEMOGLOBIN 20.8 pg (27.0-31.0); MEAN CORPUSCULAR HGB CONC 30.5 g/dL (33.0-37.0); MEAN PLATELET VOLUME 8.9 fL (7.2-11.7); MONO # 0.6 K/uL (0.0-0.8); MONO % 6.4 % (0.0-10.0); RED CELL DISTRIBUTION WIDTH 16.9 % (11.5-14.5); WHITE BLOOD COUNT 8.6 K/uL (4.8-10.8)
[2016-10-04 12:29] LABS: CHLORIDE 103 mmol/L (98-107); POTASSIUM 3.8 mmol/L (3.6-5.2); SODIUM 142 mmol/L (132-148)
[2016-10-04 12:32] LABS: ALB/GLOB RATIO 0.9 (1.0-2.1); ALKALINE PHOSPHATASE 134 U/L (38-126); ALT/SGPT 57 U/L (9-52); AST/SGOT 19 U/L (14-36); BILIRUBIN,TOTAL 0.6 mg/dL (0.2-1.3); BLOOD UREA NITROGEN 16 mg/dL (7-17); CALCIUM 9.3 mg/dl (8.6-10.4); CARBON DIOXIDE 27 mmol/L (22-30); GFR AFRICAN-AMERICAN > 60; GLUCOSE,RANDOM 99 mg/dL (65-105)
[2016-10-04] MEDS: Ciprofloxacin 400mg/200ml D5W 400 MG/200 ML BAG IVPB SCH (15:30)
[2016-10-05] MEDS: Ceftaroline 600 MG in Sodium Chloride 0.9% 100 ML IVPB SCH (02:00)
[2016-10-05] MEDS: Ciprofloxacin 400mg/200ml D5W 400 MG/200 ML BAG IVPB SCH ×2 (03:13→14:33)
[2016-10-05 08:18] LABS: BASO # 0.1 K/uL (0.0-0.2); BASO % 0.8 % (0.0-2.0); EOS # 0.2 K/uL (0.0-0.7); EOS % 2.3 % (0.0-4.0); HEMATOCRIT 33.8 % (34.0-47.0); LYMPH # 2.5 K/uL (1.0-4.3); LYMPH % 27.9 % (20.0-40.0); MEAN CORPUSCULAR HEMOGLOBIN 21.2 pg (27.0-31.0); MEAN CORPUSCULAR HGB CONC 31.1 g/dL (33.0-37.0); MEAN PLATELET VOLUME 9.2 fL (7.2-11.7); MONO # 0.5 K/uL (0.0-0.8); MONO % 5.7 % (0.0-10.0)
[2016-10-05 08:44] LABS: CHLORIDE 103 mmol/L (98-107); SODIUM 140 mmol/L (132-148)
[2016-10-05 08:45] LABS: GFR AFRICAN-AMERICAN > 60
[2016-10-05 08:46] LABS: ALB/GLOB RATIO 0.9 (1.0-2.1); ALKALINE PHOSPHATASE 118 U/L (38-126); ALT/SGPT 61 U/L (9-52); AST/SGOT 19 U/L (14-36); BILIRUBIN,TOTAL 0.6 mg/dL (0.2-1.3); BLOOD UREA NITROGEN 15 mg/dL (7-17); CALCIUM 8.8 mg/dl (8.6-10.4); CARBON DIOXIDE 27 mmol/L (22-30); GLUCOSE,RANDOM 95 mg/dL (65-105); TOTAL PROTEIN 6.8 g/dL (6.3-8.3)
[2016-10-05] MEDS: Saccharomyces Boulardi 250 mg Cap PO SCH (10:14)
[2016-10-05] MEDS: Venlafaxine 150 mg ER Cap PO SCH (10:15)
[2016-10-05] MEDS: Tolterodine 2 mg ER Cap PO SCH (10:15)
[2016-10-05] MEDS: Enoxaparin 40 mg Syringe SC SCH (10:15)
--- NOTE | 2016-10-05 11:09 | CP.PCM.PN ---
<Babatunde Hernandez - Last Filed: 10/05/16 17:29> Subjective - Date & Time of Evaluation Date of Evaluation: 10/05/16 Time of Evaluation: 11:01 - Subjective Subjective: PGY1 Note for Dr. Long HPI: Patient seen and examined at bedside. Doing well with no complaints at this time. Resting comfortable with no splint on but the hand is elevated. I spoke to the son in law regarding the blood cultures. He was concerned about her infection but i told him she was on antibiotics for her infection and we repeated the blood cultures. I told him i would let him or his know the results as soon as they were available. Patient will need OT to come to her house in order to get her fitted for the splint. Objective - Vital Signs/Intake and Output Vital Signs (last 24 hours): Temp Pulse Resp BP Pulse Ox 98.1 F 65 20 108/67 98 10/05/16 09:34 10/05/16 09:34 10/05/16 09:34 10/05/16 09:34 10/05/16 09:34 Intake and Output: 10/05/16 10/05/16 06:59 18:59 Intake Total 320 Output Total 400 Balance -80 - Medications Medications: Current Medications Baclofen (Lioresal) 20 mg PO TID [facility] Last Admin: 10/05/16 10:15 Dose: 20 mg Enoxaparin Sodium (Lovenox) 40 mg SC DAILY [facility] Last Admin: 10/05/16 10:15 Dose: 40 mg Famotidine (Pepcid) 20 mg PO DAILY [facility] Last Admin: 10/05/16 10:14 Dose: 20 mg Ceftaroline Fosamil 600 mg/ (Sodium Chloride) 100 mls @ 100 mls/hr IVPB Q12H [facility] Last Admin: 10/05/16 02:00 Dose: 100 mls/hr Ciprofloxacin (Cipro 400mg/200ml Dsw) 400 mg in 200 mls @ 133 mls/hr IVPB Q12H [facility] Last Admin: 10/05/16 03:13 Dose: 133 mls/hr Ibuprofen (Motrin Tab) 600 mg PO TID PRN PRN Reason: Pain, Mild (1-3) Last Admin: 10/03/16 22:05 Dose: 600 mg Mupirocin (Bactroban Ointment) 0 gm TOP BID [facility] Last Admin: 10/05/16 10:16 Dose: 1 applic Ondansetron HCl (Zofran Inj) 4 mg IVP Q6H PRN PRN Reason: Nausea/Vomiting Saccharomyces Boulardii (Florastor) 250 mg PO DAILY [facility] Last Admin: 10/05/16 10:14 Dose: 250 mg Tolterodine Tartrate (Detrol La) 2 mg PO DAILY [facility] Last Admin: 10/05/16 10:15 Dose: 2 mg Venlafaxine HCl (Effexor Xr) 150 mg PO DAILY [facility] Last Admin: 10/05/16 10:15 Dose: 150 mg - Labs Labs: 10/05/16 08:04 10/05/16 08:04 - Constitutional Appears: Well, Non-toxic, No Acute Distress - Head Exam Head Exam: NORMAL INSPECTION - ENT Exam ENT Exam: Mucous Membranes Moist - Respiratory Exam Respiratory Exam: Clear to Ausculation Bilateral, NORMAL BREATHING PATTERN - Cardiovascular Exam Cardiovascular Exam: REGULAR RHYTHM. absent: Gallop, JVD, Rubs, Murmur - GI/Abdominal Exam GI & Abdominal Exam: Soft, Normal Bowel Sounds. absent: Distended, Firm, Tenderness Additional comments: suprapubic catheter - Neurological Exam Neurological Exam: Alert, Awake - Skin Skin Exam: Dry, Intact, Normal Color, Warm Assessment and Plan - Assessment and Plan (Free Text) Assessment: 2nd metacarpal of right hand fracture * Right Hand Xray - oblique displaced fracture of the distal 2nd metacarpal. Soft tissue swelling * Surgery (Fiore) * Temporary splint in place * F/U outpatient OT for custom splint, will need to talk to case managment because son says she will need OT to come to the home to fit her. * NSAIDs for pain Right Hand Cellulitis * ID Consulted Dr. Wilman Arora * Teflaro 600mg Q12 * Vanc 1g Q12 * Motrin PRN, Toradol PRN for pain * Procal = 0.13 Functional Quadriplegia Bacteremia * Blood culture = S. aureus * Repeated blood cultures F/U UTI * UA +3 LE * NS @ 125cc/hr * Urine Culture = S. aureus/Proteus Transaminitis * Most likely 2/2 Imuran * Continue to monitor Hx of Multiple Sclerosis * Baclofen 20mg PO TID Hx of Overactive Bladder * Vesicare 5mg PO daily Hx of Neuropathy * Effexor xR 150mg PO daily Prophylactic Measures * GI PPX: Pepcid 20mg PO daily * DVT PPX: SCDs, lovenox 40 SC daily * Regular Diet <Bill Long - Last Filed: 10/05/16 19:26> Objective - Vital Signs/Intake and Output Vital Signs (last 24 hours): Temp Pulse Resp BP Pulse Ox 98.5 F 86 20 120/81 95 10/05/16 15:00 10/05/16 15:00 10/05/16 15:00 10/05/16 15:00 10/05/16 15:00 Intake and Output: 10/05/16 10/06/16 18:59 06:59 Intake Total 560 Output Total 900 Balance -340 - Medications Medications: Current Medications Baclofen (Lioresal) 20 mg PO TID [facility] Last Admin: 10/05/16 17:13 Dose: 20 mg Enoxaparin Sodium (Lovenox) 40 mg SC DAILY [facility] Last Admin: 10/05/16 10:15 Dose: 40 mg Famotidine (Pepcid) 20 mg PO DAILY [facility] Last Admin: 10/05/16 10:14 Dose: 20 mg Ciprofloxacin (Cipro 400mg/200ml Dsw) 400 mg in 200 mls @ 133 mls/hr IVPB Q12H [facility] Last Admin: 10/05/16 14:33 Dose: 133 mls/hr Ibuprofen (Motrin Tab) 600 mg PO TID PRN PRN Reason: Pain, Mild (1-3) Last Admin: 10/03/16 22:05 Dose: 600 mg Mupirocin (Bactroban Ointment) 0 gm TOP BID [facility] Last Admin: 10/05/16 17:15 Dose: 1 applic Ondansetron HCl (Zofran Inj) 4 mg IVP Q6H PRN PRN Reason: Nausea/Vomiting Saccharomyces Boulardii (Florastor) 250 mg PO DAILY [facility] Last Admin: 10/05/16 10:14 Dose: 250 mg Tolterodine Tartrate (Detrol La) 2 mg PO DAILY [facility] Last Admin: 10/05/16 10:15 Dose: 2 mg Venlafaxine HCl (Effexor Xr) 150 mg PO DAILY [facility] Last Admin: 10/05/16 10:15 Dose: 150 mg - Labs Labs: 10/05/16 08:04 10/05/16 08:04 Attending/Attestation - Attestation I have personally seen and examined this patient.: Yes I have fully participated in the care of the patient.: Yes I have reviewed all pertinent clinical information, including history, physical exam and plan: Yes Notes (Text): 10/05/16 19:22 Patient was seen and examined at 4:45 PM 10/05/16 371 A Upon FULL ROS patient states NO to everything. Soft bowel movement again this morning Exam: General: NAD and following commands HEENT: NCA, Left Pupil is greater in size than the Right Pupil and they are both reactive to light and accomodation, EOMI, Left Eye is slightly deviated laterally, NO cervical/supraclavicular/submandibular lymphadenopathy, NO pharyngeal erythema/exudate, Mucous Membranes are moist, Nasal Turbinates are nonedematous/nonerythematous Cardio: NS1 and NS2, NO M/R/G Respiratory: CTA B/L NO R/R/W GI: BSx4, Soft, NT, Central Obesity therefore Liver and Spleen could not be adequately palpated, NO guarding/rebound tenderness Ext: NO edema, Pulses are strong and equal, Capillary Refill is 2 seconds, Area of Erythema in the posterior aspect of the Right Hand with some mile edema located between the Thumb and Finger #2 Neuro: CN II through XII are grossly intact Assessments: 1). Right Hand 2nd Metacarpal Fx Will need custom splint as documented by Surgical Team 2). Cellulitis of the Right Hand D/C'd Teflaro and Vanomycin after my conversation with ID Dr. Lana Arora and started Ciprofloxacin 400 mg IV Q12H on 10/04/16 as this will also cover the UTI , Bactermia, and the Suprapubic Catheter insertion site culture I spoke with Dr. Lana Arora again on 10/05/16 and patient will need Ciprofloxacin 500 mg PO 2x/day for 8 more days after discharge 3). UTI and Bacteremia See above Urine Culture 09/29/16 shows Proteus mirabilis and S. aureus Blood Culture 09/29/16 shows S. aureus Repeat Urine Culture 10/03/16 did NOT show any growth Blood Cutlure 10/02/16 is negative to date 4). Suprapubic Catheter Insertion Site (+) Culture See above S. aureus and Proteus mirabilis 5). Elevated LFTs 6). Hx MS/Neuropathy Baclofen 20 mg PO 2x/day Venlafaxine 150 mg PO 1x/day 7). Hx Overactive Bladder Detrol LA 2 mg PO 1x/day 8). Prophylactic Measure Lovenox 40 mg SC 1x/day Pepcid 20 mg PO 1x/day Ibuprofen 600 mg PO TID PRN Pain Zofran 4 mg IV Q6H PRN N/V Florastor 250 mg PO 1x/day [id number] Jaime [phone] was present at the time of my exam. He and his , who take care of patient, do NOT want JAK, and would like patient to be discharged to home when ready. They have home health aides. I spoke with Head Of Mathematics Idalia and ambulance with blue chair will have to be arranged for patient. She will notify Jaime when this arranged upon morning of planned discharge which is 10/06/16. Medicine Team will also notify Head Of Mathematics Idalia that arrangments will have to be made for fitting of Right Hand splint at patient's home. Bill Long D.O.
--- NOTE | 2016-10-05 13:54 | CP.PCM.PN ---
Subjective - Date & Time of Evaluation Date of Evaluation: 10/05/16 Time of Evaluation: 07:00 - Subjective Subjective: HAND SURGERY PROGRESS NOTE FOR DR. ALARCON Patient seen and examined at bedside. She denies pain, numbness, or tingling in the right hand. She is tolerating her diet. She has genia tape in place with left hand elevated on 2 pillows. Repeat blood cx from 10/02: negative @48 hours Objective - Vital Signs/Intake and Output Vital Signs (last 24 hours): Temp Pulse Resp BP Pulse Ox 98.1 F 65 20 108/67 98 10/05/16 09:34 10/05/16 09:34 10/05/16 09:34 10/05/16 09:34 10/05/16 09:34 Intake and Output: 10/05/16 10/05/16 06:59 18:59 Intake Total 320 Output Total 400 Balance -80 - Medications Medications: Current Medications Baclofen (Lioresal) 20 mg PO TID [facility] Last Admin: 10/05/16 10:15 Dose: 20 mg Enoxaparin Sodium (Lovenox) 40 mg SC DAILY [facility] Last Admin: 10/05/16 10:15 Dose: 40 mg Famotidine (Pepcid) 20 mg PO DAILY [facility] Last Admin: 10/05/16 10:14 Dose: 20 mg Ceftaroline Fosamil 600 mg/ (Sodium Chloride) 100 mls @ 100 mls/hr IVPB Q12H [facility] Last Admin: 10/05/16 02:00 Dose: 100 mls/hr Ciprofloxacin (Cipro 400mg/200ml Dsw) 400 mg in 200 mls @ 133 mls/hr IVPB Q12H [facility] Last Admin: 10/05/16 03:13 Dose: 133 mls/hr Ibuprofen (Motrin Tab) 600 mg PO TID PRN PRN Reason: Pain, Mild (1-3) Last Admin: 10/03/16 22:05 Dose: 600 mg Mupirocin (Bactroban Ointment) 0 gm TOP BID [facility] Last Admin: 10/05/16 10:16 Dose: 1 applic Ondansetron HCl (Zofran Inj) 4 mg IVP Q6H PRN PRN Reason: Nausea/Vomiting Saccharomyces Boulardii (Florastor) 250 mg PO DAILY [facility] Last Admin: 10/05/16 10:14 Dose: 250 mg Tolterodine Tartrate (Detrol La) 2 mg PO DAILY [facility] Last Admin: 10/05/16 10:15 Dose: 2 mg Venlafaxine HCl (Effexor Xr) 150 mg PO DAILY [facility] Last Admin: 10/05/16 10:15 Dose: 150 mg - Labs Labs: 10/05/16 08:04 10/05/16 08:04 - Constitutional Appears: Non-toxic, No Acute Distress - Respiratory Exam Respiratory Exam: NORMAL BREATHING PATTERN. absent: Respiratory Distress - Cardiovascular Exam Cardiovascular Exam: +S1, +S2 - Extremities Exam Additional comments: Right hand with significantly improved dorsal swelling and erythema. No tenderness. Cap refill <2 secs No pain with flexion/extension of fingers Genia tape in place - Neurological Exam Neurological Exam: Alert, CN II-XII Intact, Oriented x3 - Psychiatric Exam Psychiatric exam: Normal Affect, Normal Mood - Skin Skin Exam: Dry, Warm Assessment and Plan - Assessment and Plan (Free Text) Assessment: 61yo F with right hand pain and swelling secondary to minimally displaced fracture of right 2nd metacarpal - No surgery needed due to minimal displacement. - Genia tape in place, patient tolerating better than splint - Upon discharge, needs referral for custom splint made as an outpatient ( Camelia or santiago and danae therapy). - She should have custom radial gutter splint that supports the index finger MCP joint and leaves the DIP and PIP joints free. It can include the long finger but leave the ring and small finger free if possible. - Elevate hand on 2 pillows above the level of the heart - Ice and NSAIDs to decrease inflammation - Discussed plan with Dr. Macarena Varghese PGY-3
--- NOTE | 2016-10-05 13:55 | CP.PCM.PN ---
Subjective - Date & Time of Evaluation Date of Evaluation: 10/05/16 Time of Evaluation: 13:54 - Subjective Subjective: CHIEF COMPLAINTS TODAY : afebrile c/o pain rt hand but less rt hand improved swelling and cellulitis. hand surgeons follow-up appreciated. pt maddie cormier tape /and support ROS HEENT : N. Resp : No SOB wheezing, cough Cardio : No CP, PND orthopnea GI : No abd. Pain, n/v +VE SUPRAPUBIC CATHETER IN PLACE. SENIOR DATA ARCHITECT : No headache , focal deficit. Musculoskel : N Ext. : Pedal pulses intact, no edema or calf pain. right hand swollen and cellulitic on the dorsum. Painful on movement. Derm : N Psych : N. PE. Pt. is alert awake in no distress./DYSARTHRIC SPEECH. V.S As noted in the chart Head ,ear nose,throat and eyes : Normal. Neck : Supple with normal carotids. Lungs: Clear air entry. Heart : S1 & S2 normal . . No murmur. S4 + Abd : Soft non tender with normal bowel sounds. +VE SUPRAPUBIC CATHETER IN PLACE. Neuro : Moves all ext. with no localized deficit.RIGHT HAND swelling improving with decreasing cellulitis.pulses intact Ext : No edema with intact pulses. Neg. calf tenderness Derm : No rashes or decubitus ulcer. Radiology/Labs . repeat blood cultures 10/02/16 -ve for 3 days. Repeat urine culture 10/03/16 -ve growth. ABDOMEN CATHETER SITE +VE STAPH AUREUS./Proteus mirabilis. urine culture +ve MSSA/ PROTEUS MIRABILIS BLOOD CULTURE 1:2 SETS +VE STAPH AUREUS (MSSA ) Asssessment : STAPH AUREUS BACTEREMIA.-MSSA- SOURCE MOST LIKELY CATHETER RELATED- SUPRAPUBIC EXIT SITE INFECTION. RIGHT HAND CELLULITIS FRACTURE PHALANX SECOND METATARSAL RIGHT HAND UTI/SUPRAPUBIC CATHETER HISTORY OF MULTIPLE SCLEROSIS/AND INCREASED SPASTICITY. Plan : dc iv VANCOMYCIN 1 G ONCE A DAY DAILY.09/28- 10/04/16 DC iv TEFLARO 600 MG EVERY 12 HOURLY FOR GRAM-NEGATIVE AND GRAM-POSITIVE COVERAGE.09/29-10/05/16 PATIENT ON iv cIPRO 400 MG EVERY 12 HOURLY 10/04/16 DISCUSSED WITH dR.NARESH Webb. PATIENT CAN BE SWITCHED TO BY MOUTH cIPRO 500 TWICE A DAY FOR 8 DAYS STARTING TOMORROW. pATIENT FOLLOW-UP WITH pmvipin [facility] PER HAND SURGEON DR. ALARCON. Objective - Vital Signs/Intake and Output Vital Signs (last 24 hours): Temp Pulse Resp BP Pulse Ox 98.1 F 65 20 108/67 98 10/05/16 09:34 10/05/16 09:34 10/05/16 09:34 10/05/16 09:34 10/05/16 09:34 Intake and Output: 10/05/16 10/05/16 06:59 18:59 Intake Total 320 Output Total 400 Balance -80 - Medications Medications: Current Medications Baclofen (Lioresal) 20 mg PO TID [facility] Last Admin: 10/05/16 10:15 Dose: 20 mg Enoxaparin Sodium (Lovenox) 40 mg SC DAILY [facility] Last Admin: 10/05/16 10:15 Dose: 40 mg Famotidine (Pepcid) 20 mg PO DAILY [facility] Last Admin: 10/05/16 10:14 Dose: 20 mg Ciprofloxacin (Cipro 400mg/200ml Dsw) 400 mg in 200 mls @ 133 mls/hr IVPB Q12H [facility] Last Admin: 10/05/16 03:13 Dose: 133 mls/hr Ibuprofen (Motrin Tab) 600 mg PO TID PRN PRN Reason: Pain, Mild (1-3) Last Admin: 10/03/16 22:05 Dose: 600 mg Mupirocin (Bactroban Ointment) 0 gm TOP BID [facility] Last Admin: 10/05/16 10:16 Dose: 1 applic Ondansetron HCl (Zofran Inj) 4 mg IVP Q6H PRN PRN Reason: Nausea/Vomiting Saccharomyces Boulardii (Florastor) 250 mg PO DAILY [facility] Last Admin: 10/05/16 10:14 Dose: 250 mg Tolterodine Tartrate (Detrol La) 2 mg PO DAILY [facility] Last Admin: 10/05/16 10:15 Dose: 2 mg Venlafaxine HCl (Effexor Xr) 150 mg PO DAILY [facility] Last Admin: 10/05/16 10:15 Dose: 150 mg - Labs Labs: 10/05/16 08:04 10/05/16 08:04 Assessment and Plan (1) Cellulitis of right hand Status: Acute (2) Fracture of metacarpal of right hand, closed Status: Acute
--- NOTE | 2016-10-06 07:02 | CP.PCM.DIS ---
<Babatunde Hernandez - Last Filed: 10/06/16 09:16> Provider - Provider Date of Admission: 10/01/16 09:42 Attending physician: Shreyas Shane MD Consults: Dr. Fiore Time Spent in preparation of Discharge (in minutes): 60 Diagnosis - Discharge Diagnosis (1) UTI (urinary tract infection) Status: Resolved Priority: Medium (2) Bacteremia Status: Resolved Priority: High Hospital Course - Lab Results Lab Results: Micro Results 10/02/16 16:00 Blood Blood Culture - Preliminary NO GROWTH AFTER 3 DAYS 10/02/16 16:00 Blood Blood Culture - Preliminary NO GROWTH AFTER 3 DAYS 10/03/16 03:48 Urine,Suprapubic Urine Culture - Final No Growth (<1,000 CFU/ML) Most Recent Lab Values WBC 9.0 K/uL (4.8-10.8) 10/05/16 08:04 RBC 4.97 Mil/uL (3.80-5.20) 10/05/16 08:04 Hgb 10.5 g/dL (11.0-16.0) L 10/05/16 08:04 Hct 33.8 % (34.0-47.0) L 10/05/16 08:04 MCV 68.0 fL (81.0-99.0) L 10/05/16 08:04 MCH 21.2 pg (27.0-31.0) L 10/05/16 08:04 MCHC 31.1 g/dL (33.0-37.0) L 10/05/16 08:04 RDW 17.0 % (11.5-14.5) H 10/05/16 08:04 Plt Count 341 K/uL (130-400) 10/05/16 08:04 MPV 9.2 fL (7.2-11.7) 10/05/16 08:04 Neut % (Auto) 63.3 % (50.0-75.0) 10/05/16 08:04 Lymph % (Auto) 27.9 % (20.0-40.0) 10/05/16 08:04 [place] % (Auto) 5.7 % (0.0-10.0) 10/05/16 08:04 Eos % (Auto) 2.3 % (0.0-4.0) 10/05/16 08:04 Baso % (Auto) 0.8 % (0.0-2.0) 10/05/16 08:04 Neut # 5.7 K/uL (1.8-7.0) 10/05/16 08:04 Lymph # 2.5 K/uL (1.0-4.3) 10/05/16 08:04 [place] # 0.5 K/uL (0.0-0.8) 10/05/16 08:04 Eos # 0.2 K/uL (0.0-0.7) 10/05/16 08:04 Baso # 0.1 K/uL (0.0-0.2) 10/05/16 08:04 Differential Comment 09/29/16 13:28 ESR 40 mm/hr (0-20) H 09/30/16 07:05 pO2 49 mm/Hg (30-55) 09/29/16 13:50 VBG pH 7.42 (7.32-7.43) 09/29/16 13:50 VBG pCO2 47 mmHg (40-60) 09/29/16 13:50 VBG HCO3 28.6 mmol/L 09/29/16 13:50 VBG Total CO2 31.9 mmol/L (22-28) H 09/29/16 13:50 VBG O2 Sat (Calc) 86.5 % (40-65) H 09/29/16 13:50 VBG Base Excess 5.1 mmol/L (0.0-2.0) H 09/29/16 13:50 VBG Potassium 3.9 mmol/L (3.6-5.2) 09/29/16 13:50 Sodium 141.0 mmol/l (132-148) 09/29/16 13:50 Chloride 104.0 mmol/L (98-107) 09/29/16 13:50 Glucose 153 mg/dl (65-105) H 09/29/16 13:50 Lactate 1.3 mmol/L (0.7-2.1) 09/29/16 13:50 Sodium 140 mmol/L (132-148) 10/05/16 08:04 Potassium 4.0 mmol/L (3.6-5.2) 10/05/16 08:04 Chloride 103 mmol/L (98-107) 10/05/16 08:04 Carbon Dioxide 27 mmol/L (22-30) 10/05/16 08:04 Anion Gap 14 (10-20) 10/05/16 08:04 BUN 15 mg/dL (7-17) 10/05/16 08:04 Creatinine 0.6 MG/DL (0.7-1.2) L 10/05/16 08:04 Est GFR ( Amer) > 60 10/05/16 08:04 Est GFR (Non-Af Amer) > 60 10/05/16 08:04 Random Glucose 95 mg/dL (65-105) 10/05/16 08:04 Calcium 8.8 mg/dl (8.6-10.4) 10/05/16 08:04 Phosphorus 3.6 mg/dL (2.5-4.5) 10/03/16 07:38 Magnesium 2.0 mg/dL (1.6-2.3) 10/03/16 07:38 Total Bilirubin 0.6 mg/dL (0.2-1.3) 10/05/16 08:04 Direct Bilirubin 0.4 mg/dL (0.0-0.4) 09/30/16 07:05 AST 19 U/L (14-36) 10/05/16 08:04 ALT 61 U/L (9-52) H 10/05/16 08:04 Alkaline Phosphatase 118 U/L (38-126) 10/05/16 08:04 C-React Prot High Sens > 15.00 mg/L (1.00-3.00) H 09/30/16 07:05 Total Protein 6.8 g/dL (6.3-8.3) 10/05/16 08:04 Albumin 3.3 g/dL (3.5-5.0) L 10/05/16 08:04 Globulin 3.5 gm/dL (2.2-3.9) 10/05/16 08:04 Albumin/Globulin Ratio 0.9 (1.0-2.1) L 10/05/16 08:04 Procalcitonin 0.13 NG/ML (0.19-0.49) L 09/29/16 17:24 Venous Blood Potassium 3.9 mmol/L (3.6-5.2) 09/29/16 13:50 Urine Color Yellow (YELLOW) 10/03/16 07:32 Urine Clarity Clear (Clear) 10/03/16 07:32 Urine pH 5.0 (5.0-8.0) 10/03/16 07:32 Ur Specific [place] 1.016 (1.003-1.030) 10/03/16 07:32 Urine Protein Negative mg/dL (NEGATIVE) 10/03/16 07:32 Urine Glucose (UA) Normal mg/dL (Normal) 10/03/16 07:32 Urine Ketones Negative mg/dL (NEGATIVE) 10/03/16 07:32 Urine Blood Negative (NEGATIVE) 10/03/16 07:32 Urine Nitrate Negative (NEGATIVE) 10/03/16 07:32 Urine Bilirubin Negative (NEGATIVE) 10/03/16 07:32 Urine Urobilinogen Normal mg/dL (0.2-1.0) 10/03/16 07:32 Ur Leukocyte Esterase Trace Edin/uL (Negative) 10/03/16 07:32 Urine WBC (Auto) 10 /hpf (0-5) H 10/03/16 07:32 Urine RBC (Auto) 2 /hpf (0-3) 10/03/16 07:32 Ur Squamous Epith Cells 1 /hpf (0-5) 10/03/16 07:32 Amorphous Sediment Many /ul (<OCC) H 09/29/16 13:51 Vancomycin Trough 9.2 ug/mL (5.0-10.0) 10/03/16 07:38 - Hospital Course Hospital Course: 61 F with PMHx of MS, Overactive Bladder, and Depression presents to the ED with right hand pain. Patient is nonverbal, history retrieved from sister. Patient has home health aide assist her with her ADLs. During transfer last week , from toilet to wheelchair, the home health aid, grabbed the patient's right hand, grasping firmly the first 2 digits. Afterwards, the patient complained of right hand pain. The family assumed she sprained it and applied ice packs to the hand. They noticed the hand was becoming swollen, erythematous, and started to cause the patient pain. The family has a visiting REPL[employer]ISHMENT MERCHANDISING ASSOCIATE that comes 1-2/ month. The REPLENISHMENT MERCHANDISING ASSOCIATE ordered a hand xray - which showed fracture to the 2nd digit. Once aware of this, patient was brought to the ED. The patient has hx of overactive bladder , so has a suprapubic indwelling catheter inserted. This is changed out every 2 weeks. She has not been on steroids for several years now. She was given a small dose for the past 3 days by the visiting RE[employer]ISH[employer] MERCHANDISING [employer]OCIATE. As per family, no fever or chills where noted. ROS unattainable from patient. Patient was seen by Dr. Fiore on 09/29 that deemed no surgical intervention was needed. She said that the patient needed a custom made splint as an outpatient by OT. She placed her in a temporary splint, elevated the hand, placed ice on the hand and used NSAIDs for pain. Patient was seen by Dr. Arora given the + blood and urine cultures. He placed the patient on Ancef. After the sensitivities of the cultures resulted. He changed cecille Abx to vanco and teflaro and d/c the ancef. Repeat blood and urine cultures were done. The patient has remained Afebrile for the remainder of her stay with no chills or other systemic symptoms. We talked to Dr. Arora and he said it was ok to d/c on Cipro 500mg BID. - Date & Time of H&P Date of H&P: 09/29/16 Time of H&P: 15:46 Discharge Exam - Head Exam Head Exam: NORMAL INSPECTION - Eye Exam Eye Exam: absent: Conjunctival injection, Periorbital swelling, Periorbital tenderness - ENT Exam ENT Exam: Mucous Membranes Moist - Respiratory Exam Respiratory Exam: NORMAL BREATHING PATTERN. absent: Decreased Breath Sounds, Rales, Rhonchi, Wheezes, Stridor - Cardiovascular Exam Cardiovascular Exam: REGULAR RHYTHM. absent: Tachycardia, Gallop, Rubs, Systolic Murmur - GI/Abdominal Exam GI & Abdominal Exam: Normal Bowel Sounds, Soft. absent: Distended, Tenderness - Extremities Exam Additional comments: Decreased swelling and redness of R. arm. - Neurological Exam Neurological exam: Alert - Psychiatric Exam Psychiatric exam: Normal Affect, Normal Mood - Skin Skin Exam: Dry, Intact, Normal Color, Warm Discharge Plan - Discharge Medications Prescriptions: azaTHIOprine [Imuran] 50 mg PO TID #120 Baclofen [Lioresal] 20 mg PO BID #60 Ciprofloxacin [Cipro] 500 mg PO BID #16 tab Methenamine Hippurate [Hiprex] 1 gm PO DAILY #30 Venlafaxine [Effexor 50 MG TAB] 150 mg PO DAILY #30 - Follow Up Plan Condition: STABLE Disposition: HOME/ ROUTINE Instructions: Hand Fracture (DC), Cellulitis (DC), Cellulitis (GEN) Additional Instructions: 1. From a surgical standpoint, patient is stable and clear for discharge. No surgical intervention needed. Please call Dr. Fiore's office if you have any problems with your arm. I have attached the number to the office. While waiting for the splint to be made, elevate the hand on 2 pillows above the level of the heart and use ice and NSAIDs to decrease the inflammation. 2. Please show the following instructions to the Ocupational Therapists that come to make your splint: - Upon discharge, you will need a custom splint made as an outpatient ( Camelia or santiago and danae therapy). - Needs custom radial gutter splint that supports the index finger MCP joint and leaves the DIP and PIP joints free. It can include the long finger but leave the ring and small finger free if possible. 3. From a Infectious Disease standpoint, patient is stable and clear for Discharge. Please continue Ciprofloxacin 500mg 2x/day for 8 more days. Further prescription instructions will be provided at discharge. 4. From a Medical standpoint, patient is stable and clear for discharge. Please follow up with your primary doctor in one week. Please call the office to make an appointment. If you would like to follow up in our clinic you may. I have attached information regarding our clinic. We have arranged for a home health aid to come to the house in order to provide wound care. 5. If symptoms return please return to the ER. 6. Prescription instructions will be provided at discharge. 7. Thank you. It has been a pleasure to take care of you. Referrals: Monika Fiore MD [Staff Provider] - [facility] / [facility] [Outside] <Bill Long - Last Filed: 10/06/16 19:11> Provider - Provider Date of Admission: 10/01/16 09:42 Attending physician: Shreyas Shane MD Hospital Course - Lab Results Lab Results: Micro Results 10/02/16 16:00 Blood Blood Culture - Preliminary NO GROWTH AFTER 4 DAYS 10/02/16 16:00 Blood Blood Culture - Preliminary NO GROWTH AFTER 4 DAYS 10/03/16 03:48 Urine,Suprapubic Urine Culture - Final No Growth (<1,000 CFU/ML) Most Recent Lab Values WBC 9.8 K/uL (4.8-10.8) 10/06/16 07:54 RBC 4.98 Mil/uL (3.80-5.20) 10/06/16 07:54 Hgb 10.6 g/dL (11.0-16.0) L 10/06/16 07:54 Hct 34.0 % (34.0-47.0) 10/06/16 07:54 MCV 68.3 fL (81.0-99.0) L 10/06/16 07:54 MCH 21.3 pg (27.0-31.0) L 10/06/16 07:54 MCHC 31.2 g/dL (33.0-37.0) L 10/06/16 07:54 RDW 16.8 % (11.5-14.5) H 10/06/16 07:54 Plt Count 325 K/uL (130-400) 10/06/16 07:54 MPV 8.9 fL (7.2-11.7) 10/06/16 07:54 Neut % (Auto) 58.6 % (50.0-75.0) 10/06/16 07:54 Lymph % (Auto) 31.6 % (20.0-40.0) 10/06/16 07:54 [place] % (Auto) 5.9 % (0.0-10.0) 10/06/16 07:54 Eos % (Auto) 2.0 % (0.0-4.0) 10/06/16 07:54 Baso % (Auto) 1.9 % (0.0-2.0) 10/06/16 07:54 Neut # 5.7 K/uL (1.8-7.0) 10/06/16 07:54 Lymph # 3.1 K/uL (1.0-4.3) 10/06/16 07:54 [place] # 0.6 K/uL (0.0-0.8) 10/06/16 07:54 Eos # 0.2 K/uL (0.0-0.7) 10/06/16 07:54 Baso # 0.2 K/uL (0.0-0.2) 10/06/16 07:54 Differential Comment 09/29/16 13:28 ESR 40 mm/hr (0-20) H 09/30/16 07:05 pO2 49 mm/Hg (30-55) 09/29/16 13:50 VBG pH 7.42 (7.32-7.43) 09/29/16 13:50 VBG pCO2 47 mmHg (40-60) 09/29/16 13:50 VBG HCO3 28.6 mmol/L 09/29/16 13:50 VBG Total CO2 31.9 mmol/L (22-28) H 09/29/16 13:50 VBG O2 Sat (Calc) 86.5 % (40-65) H 09/29/16 13:50 VBG Base Excess 5.1 mmol/L (0.0-2.0) H 09/29/16 13:50 VBG Potassium 3.9 mmol/L (3.6-5.2) 09/29/16 13:50 Sodium 141.0 mmol/l (132-148) 09/29/16 13:50 Chloride 104.0 mmol/L (98-107) 09/29/16 13:50 Glucose 153 mg/dl (65-105) H 09/29/16 13:50 Lactate 1.3 mmol/L (0.7-2.1) 09/29/16 13:50 Sodium 140 mmol/L (132-148) 10/06/16 07:54 Potassium 4.1 mmol/L (3.6-5.2) 10/06/16 07:54 Chloride 103 mmol/L (98-107) 10/06/16 07:54 Carbon Dioxide 27 mmol/L (22-30) 10/06/16 07:54 Anion Gap 14 (10-20) 10/06/16 07:54 BUN 18 mg/dL (7-17) H 10/06/16 07:54 Creatinine 0.6 MG/DL (0.7-1.2) L 10/06/16 07:54 Est GFR ( Amer) > 60 10/06/16 07:54 Est GFR (Non-Af Amer) > 60 10/06/16 07:54 Random Glucose 92 mg/dL (65-105) 10/06/16 07:54 Calcium 9.0 mg/dl (8.6-10.4) 10/06/16 07:54 Phosphorus 3.6 mg/dL (2.5-4.5) 10/03/16 07:38 Magnesium 2.0 mg/dL (1.6-2.3) 10/03/16 07:38 Total Bilirubin 0.6 mg/dL (0.2-1.3) 10/06/16 07:54 Direct Bilirubin 0.4 mg/dL (0.0-0.4) 09/30/16 07:05 AST 19 U/L (14-36) 10/06/16 07:54 ALT 52 U/L (9-52) 10/06/16 07:54 Alkaline Phosphatase 114 U/L (38-126) 10/06/16 07:54 C-React Prot High Sens > 15.00 mg/L (1.00-3.00) H 09/30/16 07:05 Total Protein 6.7 g/dL (6.3-8.3) 10/06/16 07:54 Albumin 3.3 g/dL (3.5-5.0) L 10/06/16 07:54 Globulin 3.4 gm/dL (2.2-3.9) 10/06/16 07:54 Albumin/Globulin Ratio 1.0 (1.0-2.1) 10/06/16 07:54 Procalcitonin 0.13 NG/ML (0.19-0.49) L 09/29/16 17:24 Venous Blood Potassium 3.9 mmol/L (3.6-5.2) 09/29/16 13:50 Urine Color Yellow (YELLOW) 10/03/16 07:32 Urine Clarity Clear (Clear) 10/03/16 07:32 Urine pH 5.0 (5.0-8.0) 10/03/16 07:32 Ur Specific [place] 1.016 (1.003-1.030) 10/03/16 07:32 Urine Protein Negative mg/dL (NEGATIVE) 10/03/16 07:32 Urine Glucose (UA) Normal mg/dL (Normal) 10/03/16 07:32 Urine Ketones Negative mg/dL (NEGATIVE) 10/03/16 07:32 Urine Blood Negative (NEGATIVE) 10/03/16 07:32 Urine Nitrate Negative (NEGATIVE) 10/03/16 07:32 Urine Bilirubin Negative (NEGATIVE) 10/03/16 07:32 Urine Urobilinogen Normal mg/dL (0.2-1.0) 10/03/16 07:32 Ur Leukocyte Esterase Trace Edin/uL (Negative) 10/03/16 07:32 Urine WBC (Auto) 10 /hpf (0-5) H 10/03/16 07:32 Urine RBC (Auto) 2 /hpf (0-3) 10/03/16 07:32 Ur Squamous Epith Cells 1 /hpf (0-5) 10/03/16 07:32 Amorphous Sediment Many /ul (<OCC) H 09/29/16 13:51 Vancomycin Trough 9.2 ug/mL (5.0-10.0) 10/03/16 07:38 Attending/Attestation - Attestation I have personally seen and examined this patient.: Yes I have fully participated in the care of the patient.: Yes I have reviewed all pertinent clinical information, including history, physical exam and plan: Yes Notes (Text): 10/06/16 19:11 Please also see my progress note 10/06/16
[2016-10-06 07:51] VITALS: BP 132/71; PULSE 80; RESP 18; TEMP 98; O2SAT 98
[2016-10-06 08:04] LABS: BASO # 0.2 K/uL (0.0-0.2); BASO % 1.9 % (0.0-2.0); EOS # 0.2 K/uL (0.0-0.7); LYMPH # 3.1 K/uL (1.0-4.3); LYMPH % 31.6 % (20.0-40.0); MEAN CELL VOLUME 68.3 fL (81.0-99.0); MEAN CORPUSCULAR HEMOGLOBIN 21.3 pg (27.0-31.0); MEAN CORPUSCULAR HGB CONC 31.2 g/dL (33.0-37.0); MEAN PLATELET VOLUME 8.9 fL (7.2-11.7); MONO # 0.6 K/uL (0.0-0.8); MONO % 5.9 % (0.0-10.0); RED CELL DISTRIBUTION WIDTH 16.8 % (11.5-14.5); WHITE BLOOD COUNT 9.8 K/uL (4.8-10.8)
[2016-10-06 08:25] LABS: CHLORIDE 103 mmol/L (98-107); SODIUM 140 mmol/L (132-148)
[2016-10-06 08:26] LABS: POTASSIUM 4.1 mmol/L (3.6-5.2)
[2016-10-06 08:28] LABS: ALKALINE PHOSPHATASE 114 U/L (38-126); AST/SGOT 19 U/L (14-36); BILIRUBIN,TOTAL 0.6 mg/dL (0.2-1.3); BLOOD UREA NITROGEN 18 mg/dL (7-17); CARBON DIOXIDE 27 mmol/L (22-30); GFR AFRICAN-AMERICAN > 60; TOTAL PROTEIN 6.7 g/dL (6.3-8.3)
[2016-10-06 08:29] LABS: ALT/SGPT 52 U/L (9-52); GLUCOSE,RANDOM 92 mg/dL (65-105)
--- NOTE | 2016-10-06 08:50 | CP.PCM.PN ---
Subjective - Date & Time of Evaluation Date of Evaluation: 10/06/16 Time of Evaluation: 08:30 - Subjective Subjective: Patient was seen and examined at 8:30 AM 10/06/16 371 A Upon FULL ROS patient states NO to everything. Soft bowel movement yesterday but not this morning Exam: General: NAD and following commands HEENT: NCA, Left Pupil is greater in size than the Right Pupil and they are both reactive to light and accomodation, EOMI, Left Eye is slightly deviated laterally, NO cervical/supraclavicular/submandibular lymphadenopathy, NO pharyngeal erythema/exudate, Mucous Membranes are moist, Nasal Turbinates are nonedematous/nonerythematous Cardio: NS1 and NS2, NO M/R/G Respiratory: CTA B/L NO R/R/W GI: BSx4, Soft, NT, Central Obesity therefore Liver and Spleen could not be adequately palpated, NO guarding/rebound tenderness, Area of Suprapubic Catheter insertion site has some erythema but no other signs of cellulitis Ext: NO edema, Pulses are strong and equal, Capillary Refill is 2 seconds, Area of Erythema in the posterior aspect of the Right Hand with some mile edema located between the Thumb and Finger #2 has improved since my initial exam on . Neuro: CN II through XII are grossly intact Sking: no sacral/buttock/rk prominence ulcers (examined with patient's home nurse Beulah who was present at the time of the exam) Assessments: 1). Right Hand 2nd Metacarpal Fx Will need custom splint as documented by Surgical Team 2). Cellulitis of the Right Hand D/C'd Teflaro and Vanomycin after my conversation with ID Dr. Lana Arora and started Ciprofloxacin 400 mg IV Q12H as this will also cover the UTI, Bactermia , and the Suprapubic Catheter insertion site culture Continue Cipro 500 mg PO Q12H for 8 days 3). UTI and Bacteremia See above Urine Culture 09/29/16 shows Proteus mirabilis and S. aureus Blood Culture 09/29/16 shows S. aureus Repeat Urine Culture 10/03/16 did NOT show any growth Blood Cutlure 10/02/16 is negative to date 4). Suprapubic Catheter Insertion Site (+) Culture See above S. aureus and Proteus mirabilis 5). Elevated LFTs 6). Hx MS/Neuropathy Baclofen 20 mg PO 2x/day Venlafaxine 150 mg PO 1x/day 7). Hx Overactive Bladder Detrol LA 2 mg PO 1x/day Patient is stable for discharge to home The following instructions should be given to patient's family and Home Nurse Beulah who is currently at bedside: 1). Contact Nathaly and Emil at [phone] to make arrangements for them to come to your house so that custom hand splint can be made for the Right Hand 2nd Metacarpal Fracture. They are are located on [address] [place] [address] [place] [address]. The splint must be made in the following fashion: Custom radial gutter splint that supports the index finger MCP joint and leaves the DIP and PIP joints free. It can include the long finger but leave the ring and small finger free if possible. Keep the right hand elevated on 2 pillows 2). Please schedule follow up with Orthopedic Surgeon Dr. Monika Fiore after the hand splint is made/fitted by calling her office [phone]. 3). The following prescriptions were provided to you: Methenamine Hippurate 1 gm, 1 tablet by mouth 1x/day, Disp #30, NO refills Venlafaxine 50 mg, 1 tablet by mouth 1x/day, Disp #30, NO refills Baclofen 20 mg, 1 tablet by mouth 2x/day, Disp #60, NO refills Azathioprine 50 mg, 1 tablet by mouth 4x/day, Disp #120, NO refills Ciprofloxacin 500 mg, 1 tablet by mouth 2x/day, Disp #16, NO refills Vesicare 5 mg, 1 tablet by mouth 1x/day, Disp #30, NO refills Skilled Visiting Nurse for wound care 4). Continue to take your over the counter medication: Omeprazole 20 mg, 1 tablet by mouth 1x/day 5). Please ask your pharmacist which Probiotic that he/she recommends and take with your lunch for the next 40 days. 6). Please apply Neosporin Triple Antibiotic Ointment around the suprapubic catheter insertion site 2x a day. 7). Please make sure to follow up with your primary care physician and your neurologist in the next 7 to 10 days. 8). Please take care and be well. Bill Long D.O. Objective - Vital Signs/Intake and Output Vital Signs (last 24 hours): Temp Pulse Resp BP Pulse Ox 98 F 80 18 132/71 98 10/06/16 07:50 10/06/16 07:50 10/06/16 07:50 10/06/16 07:50 10/06/16 07:50 Intake and Output: 10/06/16 10/06/16 06:59 18:59 Intake Total 120 Output Total 1200 Balance -1080 - Medications Medications: Current Medications Baclofen (Lioresal) 20 mg PO TID [facility] Last Admin: 10/05/16 17:13 Dose: 20 mg Enoxaparin Sodium (Lovenox) 40 mg SC DAILY [facility] Last Admin: 10/05/16 10:15 Dose: 40 mg Famotidine (Pepcid) 20 mg PO DAILY [facility] Last Admin: 10/05/16 10:14 Dose: 20 mg Ciprofloxacin (Cipro 400mg/200ml Dsw) 400 mg in 200 mls @ 133 mls/hr IVPB Q12H [facility] Last Admin: 10/05/16 14:33 Dose: 133 mls/hr Ibuprofen (Motrin Tab) 600 mg PO TID PRN PRN Reason: Pain, Mild (1-3) Last Admin: 10/03/16 22:05 Dose: 600 mg Mupirocin (Bactroban Ointment) 0 gm TOP BID [facility] Last Admin: 10/05/16 17:15 Dose: 1 applic Ondansetron HCl (Zofran Inj) 4 mg IVP Q6H PRN PRN Reason: Nausea/Vomiting Saccharomyces Boulardii (Florastor) 250 mg PO DAILY [facility] Last Admin: 10/05/16 10:14 Dose: 250 mg Tolterodine Tartrate (Detrol La) 2 mg PO DAILY [facility] Last Admin: 10/05/16 10:15 Dose: 2 mg Venlafaxine HCl (Effexor Xr) 150 mg PO DAILY [facility] Last Admin: 10/05/16 10:15 Dose: 150 mg - Labs Labs: 10/06/16 07:54 10/06/16 07:54
--- NOTE | 2016-10-06 09:18 | CP.PCM.PN ---
Subjective - Date & Time of Evaluation Date of Evaluation: 10/06/16 Time of Evaluation: 07:40 - Subjective Subjective: General Surgery Note Patient was seen and examined at bedside in no acute distress. Patient denies fever, chills, nausea, vomiting. Patient admits to mild pain in her right hand but denies numbness and tingling. Patient has no new complaints. Objective - Vital Signs/Intake and Output Vital Signs (last 24 hours): Temp Pulse Resp BP Pulse Ox 98 F 80 18 132/71 98 10/06/16 07:50 10/06/16 07:50 10/06/16 07:50 10/06/16 07:50 10/06/16 07:50 Intake and Output: 10/06/16 10/06/16 06:59 18:59 Intake Total 120 Output Total 1200 Balance -1080 - Medications Medications: Current Medications Baclofen (Lioresal) 20 mg PO TID [facility] Last Admin: 10/05/16 17:13 Dose: 20 mg Enoxaparin Sodium (Lovenox) 40 mg SC DAILY [facility] Last Admin: 10/05/16 10:15 Dose: 40 mg Famotidine (Pepcid) 20 mg PO DAILY [facility] Last Admin: 10/05/16 10:14 Dose: 20 mg Ciprofloxacin (Cipro 400mg/200ml Dsw) 400 mg in 200 mls @ 133 mls/hr IVPB Q12H [facility] Last Admin: 10/05/16 14:33 Dose: 133 mls/hr Ibuprofen (Motrin Tab) 600 mg PO TID PRN PRN Reason: Pain, Mild (1-3) Last Admin: 10/03/16 22:05 Dose: 600 mg Mupirocin (Bactroban Ointment) 0 gm TOP BID [facility] Last Admin: 10/05/16 17:15 Dose: 1 applic Ondansetron HCl (Zofran Inj) 4 mg IVP Q6H PRN PRN Reason: Nausea/Vomiting Saccharomyces Boulardii (Florastor) 250 mg PO DAILY [facility] Last Admin: 10/05/16 10:14 Dose: 250 mg Tolterodine Tartrate (Detrol La) 2 mg PO DAILY [facility] Last Admin: 10/05/16 10:15 Dose: 2 mg Venlafaxine HCl (Effexor Xr) 150 mg PO DAILY [facility] Last Admin: 10/05/16 10:15 Dose: 150 mg - Labs Labs: 10/06/16 07:54 10/06/16 07:54 - Constitutional Appears: Well, No Acute Distress - Head Exam Head Exam: ATRAUMATIC - Eye Exam Eye Exam: EOMI - Respiratory Exam Respiratory Exam: Clear to Ausculation Bilateral, NORMAL BREATHING PATTERN - Cardiovascular Exam Cardiovascular Exam: REGULAR RHYTHM, +S1, +S2 - GI/Abdominal Exam GI & Abdominal Exam: Soft, Normal Bowel Sounds - Extremities Exam Additional comments: Right hand with significantly improved dorsal swelling and erythema. No tenderness. Cap refill <2 secs No pain with flexion/extension of fingers Zachariah tape in place - Neurological Exam Neurological Exam: Alert, Awake Assessment and Plan - Assessment and Plan (Free Text) Assessment: 61yo F with right hand pain and swelling secondary to minimally displaced fracture of right 2nd metacarpal Plan: -Stable from surgical standpoint -No surgery needed due to minimal displacement. - Zachariah tape in place, patient tolerating better than splint - Upon discharge, needs referral for custom splint made as an outpatient ( [facility]). - She should have custom radial gutter splint that supports the index finger MCP joint and leaves the DIP and PIP joints free. It can include the long finger but leave the ring and small finger free if possible. - Elevate hand on 2 pillows above the level of the heart - Ice and NSAIDs to decrease inflammation - Discussed plan with Dr. Macarena Bear, PGY -1
[2016-10-06] MEDS: Enoxaparin 40 mg Syringe SC SCH (10:15)
[2016-10-06] MEDS: Saccharomyces Boulardi 250 mg Cap PO SCH (10:15)
[2016-10-06] MEDS: Tolterodine 2 mg ER Cap PO SCH (10:16)
[2016-10-06] MEDS: Venlafaxine 150 mg ER Cap PO SCH (10:16)
== END 2016-10-06 12:12 | disposition home or self-care (01) | DRG 562 ==
LOC: C.ER 12:13 → C.9E 15:31 → C.3T 20:41 → OBSVTOIN 10-01 09:42
PROVIDERS: ADMIT Internal Medicine; ATTEND Internal Medicine
DX: S62.390A Other fracture of second metacarpal bone, right hand, initial encounter for closed fracture (principal); R53.2 Functional quadriplegia; R78.81 Bacteremia; T83.518A Infection and inflammatory reaction due to other urinary catheter, initial encounter; L03.113 Cellulitis of right upper limb; N39.0 Urinary tract infection, site not specified; G35 Multiple sclerosis; G62.9 Polyneuropathy, unspecified; X58.XXXA Exposure to other specified factors, initial encounter; N32.81 Overactive bladder; Z99.3 Dependence on wheelchair; Z96.642 Presence of left artificial hip joint; Z87.891 Personal history of nicotine dependence; R74.0 Nonspecific elevation of levels of transaminase and lactic acid dehydrogenase [LDH]; B96.4 Proteus (mirabilis) (morganii) as the cause of diseases classified elsewhere; Y84.6 Urinary catheterization as the cause of abnormal reaction of the patient, or of later complication, without mention of misadventure at the time of the procedure